=== PATIENT | male | born 1950 | race Caucasian/White ===

== ENCOUNTER 2017-05-23 14:27 | Inpatient (IN) | payer BC ==
[~2017-05-23] VITALS: Ht 177.8 cm; Wt 81.3 kg
[~2017-05-23 14:27] MED LIST: CLON0.5T PO; SERT100 PO
[2017-05-23 14:31] VITALS: BP 126/83; PULSE 107; RESP 16; TEMP 97.6; O2SAT 93
[2017-05-23] MEDS ORDERED: CLON0.5T PO (15:16)
[2017-05-23] MEDS ORDERED: ZOLO100T PO (15:16)
[2017-05-23 15:26] VITALS: O2SAT 94
[2017-05-23] MEDS ORDERED: FUROSEMIDE 40 MG/4 ML VIAL IVP ONE (15:30)
[2017-05-23] MEDS ORDERED: NITROGLYCERIN 2% OINT 1 GM PACKET TOPICAL ONE (15:30)
[2017-05-23] MEDS ORDERED: SODIUM CHLORIDE 0.9% FLUSH 10 ML FLUSH IVF PRN (15:30)
[2017-05-23] MEDS ORDERED: DILTIAZEM HCL 25 MG/5 ML VIAL IV PUSH ONE (16:00)
[2017-05-23] MEDS ORDERED: SODIUM CHLORIDE 0.9% FLUSH 10 ML FLUSH IV FLUSH PRN ×2 (16:00→18:00)
--- NOTE | 2017-05-23 16:22 | PD ---
HPI . Cough and shortness of breath Chief Complaint: Respiratory Symptoms Time Seen by Provider: 15:58 Travel History International Travel<30 days: No Contact w/Intl Traveler<30days: No Traveled to known affect area: No History of Present Illness HPI This patient presents with cough, shortness of breath and peripheral edema. Onset was maybe a week ago. It is getting progressively worse. He states that he was recently treated by an urgent care center for bronchitis with a Z-Leonel and steroids. The symptoms transiently improved but then "relapsed" about a week ago. He notes that his symptoms are exacerbated by lying down to go to sleep. Patient states that he has never had any cardiac issues. He states that his usual resting heart rate is in the 50s. The symptoms are mild. PFSH Past Medical History Depression: Yes Gastrointestinal Disorders: Yes (HIATAL HERNIA) Hiatal Hernia: Yes Past Surgical History AICD: No Joint Replacement: No Pacemaker: No Other Surgery: Yes (hernia repair) Social History Alcohol Use: Yes (socially ) Tobacco Use: No Substance Use: No Allergies-Medications (Allergen,Severity, Reaction): Coded Allergies: No Known Allergies (Unverified Allergy, Unknown, 05/23/17) Reported Meds & Prescriptions Reported Meds & Active Scripts Active Reported Zoloft (Sertraline HCl) 100 Mg Tab 150 Mg PO DAILY Clonazepam 0.5 Mg Tab 0.5 Mg PO HS Zoloft (Sertraline HCl) 100 Mg Tab 150 Mg PO HS Clonazepam 0.5 Mg Tab 0.5 Mg PO HS Review of Systems Except as stated in HPI: all other systems reviewed are Neg General / Constitutional: No: Fever, Chills Cardiovascular: No: Chest Pain or Discomfort Respiratory: Positive: Cough, Shortness of Breath Musculoskeletal: Positive: Edema Physical Exam Narrative GENERAL: Awake and alert and in no acute distress. SKIN: warm/dry. Normal color and turgor. HEAD: Normocephalic. Atraumatic. EYES: Pupils equal and round. No scleral icterus. No injection or drainage. ENT: No nasal bleeding or discharge. Mucous membranes pink and moist. NECK: Trachea midline. Full range of motion without pain.. CARDIOVASCULAR: Irregularly irregular rate and rhythm. RESPIRATORY: No accessory muscle use. Clear to auscultation. Breath sounds equal bilaterally. GASTROINTESTINAL: Abdomen soft. Nontender. Bowel sounds present. Nondistended. MUSCULOSKELETAL: No obvious deformities. 2+ pretibial pitting edema. NEUROLOGICAL: Awake and alert. No obvious cranial nerve deficits. Motor grossly within normal limits. Normal speech. PSYCHIATRIC: Appropriate mood and affect; insight and judgment normal. Data Data Last Documented VS Vital Signs Date Time Temp Pulse Resp B/P (MAP) Pulse Ox O2 Delivery O2 Flow Rate FiO2 05/23/17 15:26 94 Room Air 05/23/17 14:31 97.6 107 16 Orders Orders Electrocardiogram (05/23/17 ) Complete Blood Count With Diff (05/23/17 15:20) Comprehensive Metabolic Panel (05/23/17 15:20) B-Type Natriuretic Peptide (05/23/17 15:20) Troponin I (05/23/17 15:20) Iv Access Insert/Monitor (05/23/17 15:20) Ecg Monitoring (05/23/17 15:20) Oximetry (05/23/17 15:20) Oxygen Administration (05/23/17 15:20) Chest, Single Ap (05/23/17 15:20) Sodium Chloride 0.9% Flush (Ns Flush) (05/23/17 15:30) Furosemide Inj (Lasix Inj) (05/23/17 15:30) Nitroglycerin 2% Oint (Nitroglycerin 2% (05/23/17 15:30) Diltiazem Inj (Cardizem Inj) (05/23/17 16:00) Sodium Chloride 0.9% Flush (Ns Flush) (05/23/17 16:00) Aspirin Chew (Aspirin Chew) (05/23/17 17:15) Consult Cardiology (05/23/17 ) Admit Order (Ed Use Only) (05/23/17 ) Feathered[employer] Machine Operator / Telemetry PHYLLIS.Q8H (05/23/17 17:45) Vital Signs (Adult) Q4H (05/23/17 17:45) Diet Heart Healthy (05/23/17 Dinner) Activity Oob With Assistance (05/23/17 17:45) Notify Dr: Other (05/23/17 17:45) Labs Laboratory Tests Test 05/23/17 16:00 White Blood Count 11.0 TH/MM3 Red Blood Count 5.02 MIL/MM3 Hemoglobin 15.9 GM/DL Hematocrit 47.5 % Mean Corpuscular Volume 94.7 FL Mean Corpuscular Hemoglobin 31.6 PG Mean Corpuscular Hemoglobin Concent 33.4 % Red Cell Distribution Width 15.3 % Platelet Count 242 TH/MM3 Mean Platelet Volume 9.9 FL Neutrophils (%) (Auto) 67.2 % Lymphocytes (%) (Auto) 24.3 % Monocytes (%) (Auto) 7.5 % Eosinophils (%) (Auto) 0.3 % Basophils (%) (Auto) 0.7 % Neutrophils # (Auto) 7.4 TH/MM3 Lymphocytes # (Auto) 2.7 TH/MM3 Monocytes # (Auto) 0.8 TH/MM3 Eosinophils # (Auto) 0.0 TH/MM3 Basophils # (Auto) 0.1 TH/MM3 CBC Comment DIFF FINAL Differential Comment Blood Urea Nitrogen 23 MG/DL Creatinine 1.44 MG/DL Random Glucose 92 MG/DL Total Protein 6.1 GM/DL Albumin 3.1 GM/DL Calcium Level 8.6 MG/DL Alkaline Phosphatase 104 U/L Aspartate Amino Transf (AST/SGOT) 81 U/L Alanine Aminotransferase (ALT/SGPT) 114 U/L Total Bilirubin 0.7 MG/DL Sodium Level 148 MEQ/L Potassium Level 4.5 MEQ/L Chloride Level 114 MEQ/L Carbon Dioxide Level 25.4 MEQ/L Anion Gap 9 MEQ/L Estimat Glomerular Filtration Rate 49 ML/MIN Troponin I 1.44 NG/ML B-Type Natriuretic Peptide 965 PG/ML MDM Medical Decision Making Medical Screen Exam Complete: Yes Emergency Medical Condition: Yes Interpretation(s) EKG shows atrial fibrillation with a rate of about 125. No ST segment elevation or depression. Differential Diagnosis Differential diagnosis of dyspnea includes but is not limited to congestive heart failure, pneumonia, wheezing, pneumothorax, pulmonary embolism Narrative Course This patient presents with dyspnea especially orthopnea associated with peripheral edema. He is in atrial fibrillation with a rapid ventricular response. He has no previous similar history. I have ordered Lasix and nitroglycerin for the edema. I have ordered Cardizem for rate control. He will need to be admitted to the hospital once his workup is complete. CBC & BMP Diagram 05/23/17 16:00 Total Protein 6.1 L, Albumin 3.1 L, Calcium Level 8.6, Alkaline Phosphatase 104 , Aspartate Amino Transf (AST/SGOT) 81 H, Alanine Aminotransferase (ALT/SGPT) 114 H, Total Bilirubin 0.7 Trop 1.44 The patient has had Lasix, NTP, ASA and Cardizem bolus X 1. He has no previous cardiac history. He needs to be admitted for new-onset atrial fibrillation, congestive heart failure, rule out NSTEMI. Critical Care Narrative Aggregate critical care time was 30 minutes. Time to perform other separately billable procedures was not included in the critical care time. My time did not include minutes spent treating any other patients simultaneously or on activities that did not directly contribute to the patient's treatment. The services I provided to this patient were to treat and/or prevent clinically significant deterioration due to new onset AF with RVR, new onset CHF, elevated trop I provided critical care services requiring my management, as noted below: Chart data review, documentation time, medication orders and management, vital sign assessments/reviewing monitor data, ordering and reviewing lab tests, ordering and interpreting/reviewing x-rays and diagnostic studies, care of the patient and discussion of the patient with the admitting physicians Physician Communication Physician Communication Dr. Albright and Dr. Farias Diagnosis Primary Impression: New onset a-fib Additional Impression: Elevated troponin Admitting Information Admitting Physician Requests: Admit Condition: Stable Crystal Estrada MD May 23, 2017 16:22
--- NOTE | 2017-05-23 16:30 | RADRPT ---
EXAM DATE/TIME: 05/23/2017 15:40 [facility] COMPARISON: No previous studies available for comparison. INDICATIONS : Short of breath MEDICAL HISTORY : A-fib SURGICAL HISTORY : None. ENCOUNTER: Initial ACUITY: 4 - 6 days PAIN SCORE: 0/10 LOCATION: chest FINDINGS: Single AP view of the chest. The lungs are clear. Mild cardiac silhouette enlargement. No evidence of pleural effusion or pneumothorax. CONCLUSION: Mild cardiac silhouette enlargement. No other acute cardiopulmonary disease identi fied. Domingo Morris MD on May 23, 2017 at 16:27 Board Certified Radiologist. This report was verified electronically.
[2017-05-23 16:32] LABS: AUTOMATED NEUTROPHIL # 7.4 TH/MM3 (1.8-7.7); BASOPHIL # 0.1 TH/MM3 (0-0.2); BASOPHIL % 0.7 % (0.0-2.0); EOSINOPHIL % 0.3 % (0.0-4.0); HEMATOCRIT 47.5 % (39.0-51.0); HEMOGLOBIN 15.9 GM/DL (13.0-17.0); LYMPH % 24.3 % (9.0-44.0); LYMPHOCYTE # 2.7 TH/MM3 (1.0-4.8); MEAN CELL VOLUME 94.7 FL (80.0-100.0); MEAN CORPUSCULAR HEMOGLOBIN 31.6 PG (27.0-34.0); MEAN CORPUSCULAR HGB CONC 33.4 % (32.0-36.0); MEAN PLATELET VOLUME 9.9 FL (7.0-11.0); MONO % 7.5 % (0.0-8.0); MONOCYTE # 0.8 TH/MM3 (0-0.9); NEUT % 67.2 % (16.0-70.0); PLATELET COUNT 242 TH/MM3 (150-450); RED BLOOD COUNT 5.02 MIL/MM3 (4.50-5.90); RED CELL DISTRIBUTION WIDTH 15.3 % (11.6-17.2)
[2017-05-23 17:06] LABS: ALBUMIN 3.1 GM/DL (3.4-5.0); ALKALINE PHOSPHATASE 104 U/L (45-117); ALT (GPT) 114 U/L (12-78); AST (GOT) 81 U/L (15-37); BICARBONATE 25.4 MEQ/L (21.0-32.0); BLOOD UREA NITROGEN 23 MG/DL (7-18); CALCIUM 8.6 MG/DL (8.5-10.1); CHLORIDE 114 MEQ/L (98-107); CREATININE 1.44 MG/DL (0.60-1.30); GLOMERULAR FILTRATION RATE 49 ML/MIN (>89); GLUCOSE,RANDOM 92 MG/DL (74-106); SODIUM (NA) 148 MEQ/L (136-145); TOTAL BILIRUBIN ADULT 0.7 MG/DL (0.2-1.0); TOTAL PROTEIN 6.1 GM/DL (6.4-8.2)
[2017-05-23 17:08] LABS: TROPONIN I 1.44 NG/ML (0.02-0.05)
[2017-05-23] MEDS ORDERED: ASPIRIN 81 MG CHEW TAB CHEW ONE (17:15)
[2017-05-23] MEDS ORDERED: NALOXONE HCL 0.4 MG/ML AMP IV PUSH PRN (18:00)
[2017-05-23] MEDS ORDERED: ACETAMINOPHEN 325 MG TAB PO PRN (18:00)
[2017-05-23] MEDS ORDERED: ENOXAPARIN SODIUM 40 MG/0.4 ML SYRINGE SQ SCH (18:00)
[2017-05-23] MEDS ORDERED: SENNOSIDES 8.6 MG TAB PO PRN (18:00)
[2017-05-23] MEDS ORDERED: MAGNESIUM HYDROXIDE SUSP 30 ML CUP PO PRN (18:00)
[2017-05-23] MEDS ORDERED: ONDANSETRON HCL 4 MG/2 ML VIAL IVP PRN (18:00)
[2017-05-23] MEDS ORDERED: BISACODYL 10 MG SUPP RECTAL PRN (18:00)
[2017-05-23] MEDS ORDERED: LACTULOSE SYRUP 20 GM/30 ML CUP PO PRN (18:00)
[2017-05-23] MEDS: FUROSEMIDE 20 MG/2 ML VIAL IV PUSH SCH (19:11)
[2017-05-23] MEDS: DILTIAZEM HCL 30 MG TAB PO SCH ×2 (19:12→21:00)
[2017-05-23 19:45] VITALS: BP 122/89; PULSE 76; RESP 16; TEMP 97.7; O2SAT 98
[2017-05-23 19:46] LABS: TROPONIN I 1.11 NG/ML (0.02-0.05)
[2017-05-23] MEDS: DOCUSATE SODIUM 50 MG/SENNA 8.6 MG TAB PO SCH (21:00)
[2017-05-23] MEDS: clonazePAM 0.5 MG TAB PO SCH (21:52)
[2017-05-23] MEDS: SODIUM CHLORIDE 0.9% FLUSH 10 ML FLUSH IV FLUSH SCH (21:52)
[2017-05-23] MEDS: SERTRALINE HCL 50 MG TAB PO SCH (22:41)
[2017-05-23 23:47] VITALS: PULSE 79
[2017-05-24] VITALS (14 sets, daily range): BP systolic 93–136; BP diastolic 50–80; PULSE 61–125; RESP 16–20; TEMP 97.4–98.2; O2SAT 92–95
[2017-05-24] MEDS: NITROGLYCERIN 2% OINT 1 GM PACKET TOPICAL SCH ×4 (00:04→17:44)
[2017-05-24 02:37] LABS: BASOPHIL # 0.1 TH/MM3 (0-0.2); BASOPHIL % 0.9 % (0.0-2.0); EOSINOPHIL # 0.1 TH/MM3 (0-0.4); EOSINOPHIL % 0.6 % (0.0-4.0); HEMATOCRIT 40.5 % (39.0-51.0); HEMOGLOBIN 14.2 GM/DL (13.0-17.0); LYMPH % 29.4 % (9.0-44.0); LYMPHOCYTE # 2.9 TH/MM3 (1.0-4.8); MEAN CELL VOLUME 93.1 FL (80.0-100.0); MEAN CORPUSCULAR HEMOGLOBIN 32.7 PG (27.0-34.0); MEAN CORPUSCULAR HGB CONC 35.1 % (32.0-36.0); MONO % 8.2 % (0.0-8.0); MONOCYTE # 0.8 TH/MM3 (0-0.9); NEUT % 60.9 % (16.0-70.0); PLATELET COUNT 204 TH/MM3 (150-450); RED BLOOD COUNT 4.35 MIL/MM3 (4.50-5.90); RED CELL DISTRIBUTION WIDTH 14.9 % (11.6-17.2); WHITE BLOOD COUNT 9.9 TH/MM3 (4.0-11.0)
[2017-05-24 02:48] LABS: INTERNATIONAL NORMALIZED RATIO 1.2 RATIO; PROTHROMBIN TIME - PATIENT 11.8 SEC (9.8-11.6)
[2017-05-24 02:59] LABS: BICARBONATE 27.1 MEQ/L (21.0-32.0); CALCIUM 8.3 MG/DL (8.5-10.1); CREATININE 1.47 MG/DL (0.60-1.30)
[2017-05-24 03:11] LABS: TROPONIN I 1.05 NG/ML (0.02-0.05)
--- NOTE | 2017-05-24 08:05 | HHI.HP ---
[facility] Luke Meek MD Admission Diagnosis AF with RVR, CHF, elevated trop Diagnoses: Chief Complaint: Cough and Shortness of breath Travel History International Travel<30 Days: No Contact w/Intl Traveler <30 Da: No Traveled to Known Affected Are: No History of Present Illness This is a pleasant 66 y/o Male who came to ER with cough and shortness of breath also peripheral edema, that started one week ago, progressively worse He states that he was recently treated by an urgent care center for bronchitis with a Z-Leonel and steroids. The symptoms transiently improved but then "relapsed" about a week ago. He notes that his symptoms are exacerbated by lying down to go to sleep. Patient states that he has never had any cardiac issues. He states that his usual resting heart rate is in the 50s. The symptoms are mild. seen in his bedroom he states he has this symptoms since , was seen by urgent care and treated for Bronchitis with antibiotics, given Z Leonel, he got better but last week, started with lower leg edema after flying trip, not improving, but now worsened shortness of breath. came to ER and was admitted for probable Acute coronary syndrome. Review of Systems Constitutional: DENIES: Fever, Chills, Change in appetite Endocrine: DENIES: Heat/cold intolerance Eyes: DENIES: Blurred vision, Eye pain Except as stated in HPI: all other systems reviewed are Neg Past Family Social History Past Medical History Depression GERD/Hiatal Hernia Past Surgical History Hernia repair Reported Medications Reported Meds & Active Scripts Active Reported Zoloft (Sertraline HCl) 100 Mg Tab 150 Mg PO DAILY Clonazepam 0.5 Mg Tab 0.5 Mg PO HS Zoloft (Sertraline HCl) 100 Mg Tab 150 Mg PO HS Clonazepam 0.5 Mg Tab 0.5 Mg PO HS Allergies: Coded Allergies: No Known Allergies (Unverified Allergy, Unknown, 05/23/17) Active Ordered Medications Current Medications Medications (Trade) Dose Ordered Sig/Brandie Route Start Time Stop Time Status Last Admin (KlonoPIN) 0.5 mg HS PO 05/23/17 21:00 05/23/17 21:52 (NS Flush) 2 ml UNSCH PRN IV FLUSH 05/23/17 18:00 (NS Flush) 2 ml BID IV FLUSH 05/23/17 21:00 05/23/17 21:52 (Tylenol) 650 mg Q4H PRN PO 05/23/17 18:00 05/24/17 03:47 (Zofran Inj) 4 mg Q6H PRN IVP 05/23/17 18:00 (Lovenox Inj) 40 mg Q24H SQ 05/23/17 18:00 05/23/17 19:12 (Narcan Inj) 0.4 mg UNSCH PRN IV PUSH 05/23/17 18:00 (Sonja-Colace) 1 tab BID PO 05/23/17 21:00 (Milk Of Magnesia Liq) 30 ml Q12H PRN PO 05/23/17 18:00 (Senokot) 17.2 mg Q12H PRN PO 05/23/17 18:00 (Dulcolax Supp) 10 mg DAILY PRN RECTAL 05/23/17 18:00 (Lactulose Liq) 30 ml DAILY PRN PO 05/23/17 18:00 (Lasix Inj) 20 mg BID@09,18 IV PUSH 05/23/17 18:00 05/23/17 19:11 (Nitroglycerin 2% Oint) 1 inch Q6HR TOPICAL 05/24/17 00:00 05/24/17 06:24 (Cardizem) 30 mg QID PO 05/23/17 18:00 05/23/17 19:12 (Flu (Quadrivalent) Vaccine Inj) 0.5 ml ONCE ONCE IM 05/24/17 10:00 05/24/17 10:01 (Zoloft) 150 mg HS PO 05/23/17 22:16 05/23/17 22:41 Family History Brothers two with Atrial Fibrillation Brother with heart aneurysm Brother with Pacemaker placed. Social History Alcohol Occasional denies other toxic habits. 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 SKIN: warm/dry. Normal color and turgor. HEAD: Normocephalic. Atraumatic. EYES: Pupils equal and round. No scleral icterus. No injection or drainage. ENT: No nasal bleeding or discharge. Mucous membranes pink and moist. NECK: Trachea midline. Full range of motion without pain.. CARDIOVASCULAR: Irregularly irregular rate and rhythm. RESPIRATORY: No accessory muscle use. Clear to auscultation. Breath sounds equal bilaterally. GASTROINTESTINAL: Abdomen soft. Nontender. Bowel sounds present. Nondistended. MUSCULOSKELETAL: No obvious deformities. 2+ pretibial pitting edema. NEUROLOGICAL: Awake and alert. No obvious cranial nerve deficits. Motor grossly within normal limits. Normal speech. PSYCHIATRIC: Appropriate mood and affect; insight and judgment normal. Laboratory Laboratory Tests Test 05/23/17 16:00 05/23/17 19:00 05/24/17 02:18 White Blood Count 11.0 9.9 Red Blood Count 5.02 4.35 Hemoglobin 15.9 14.2 Hematocrit 47.5 40.5 Mean Corpuscular Volume 94.7 93.1 Mean Corpuscular Hemoglobin 31.6 32.7 Mean Corpuscular Hemoglobin Concent 33.4 35.1 Red Cell Distribution Width 15.3 14.9 Platelet Count 242 204 Mean Platelet Volume 9.9 9.0 Neutrophils (%) (Auto) 67.2 60.9 Lymphocytes (%) (Auto) 24.3 29.4 Monocytes (%) (Auto) 7.5 8.2 Eosinophils (%) (Auto) 0.3 0.6 Basophils (%) (Auto) 0.7 0.9 Neutrophils # (Auto) 7.4 6.0 Lymphocytes # (Auto) 2.7 2.9 Monocytes # (Auto) 0.8 0.8 Eosinophils # (Auto) 0.0 0.1 Basophils # (Auto) 0.1 0.1 CBC Comment DIFF FINAL DIFF FINAL Differential Comment Blood Urea Nitrogen 23 26 Creatinine 1.44 1.47 Random Glucose 92 93 Total Protein 6.1 Albumin 3.1 Calcium Level 8.6 8.3 Alkaline Phosphatase 104 Aspartate Amino Transf (AST/SGOT) 81 Alanine Aminotransferase (ALT/SGPT) 114 Total Bilirubin 0.7 Sodium Level 148 145 Potassium Level 4.5 3.7 Chloride Level 114 111 Carbon Dioxide Level 25.4 27.1 Anion Gap 9 7 Estimat Glomerular Filtration Rate 49 48 Troponin I 1.44 1.11 1.05 B-Type Natriuretic Peptide 965 683 Total Creatine Kinase 276 206 Prothrombin Time 11.8 Prothromb Time International Ratio 1.2 Activated Partial Thromboplast Time 25.4 Result Diagram: 05/24/1721705/24/17217 Imaging Last Impressions Chest X-Ray 05/23/17 1520 Signed Impressions: Service Date/Time: Tuesday, May 23, 2017 15:40 - CONCLUSION: Mild cardiac silhouette enlargement. No other acute cardiopulmonary disease identified. Domingo Morris MD Caprini VTE Risk Assessment Caprini VTE Risk Assessment: Mod/High Risk (score >= 2) Caprini Risk Assessment Model Point Value = 1 Point Value = 2 Point Value = 3 Point Value = 5 Age 41-60 Minor surgery BMI > 25 kg/m2 Swollen legs Varicose veins or History of unexplained or recurrent spontaneous Oral contraceptives or hormone replacement Sepsis (< 1 month) Serious lung disease, including pneumonia (< 1 month) Abnormal pulmonary function Acute myocardial infarction Congestive heart failure (< 1 month) History of inflammatory bowel disease Medical patient at bed rest Age 61-74 Arthroscopic surgery Major open surgery (> 45 min) Laparoscopic surgery (> 45 min) Malignancy Confined to bed (> 72 hours) Immobilizing plaster cast Central venous access Age >= 75 History of VTE Family history of VTE Factor V Leiden Prothrombin [id number] Lupus anticoagulant Anticardiolipin antibodies Elevated serum homocysteine Heparin-induced thrombocytopenia Other congenital or acquired thrombophilia Stroke (< 1 month) Elective arthroplasty Hip, pelvis, or leg fracture Acute spinal cord injury (< 1 month) Prophylaxis Regimen Total Risk Factor Score Risk Level Prophylaxis Regimen 0-1 Low Early ambulation 2 Moderate Order ONE of the following: *Sequential Compression Device (SCD) *Heparin 5000 units SQ BID 3-4 Higher Order ONE of the following medications: *Heparin 5000 units SQ TID *Enoxaparin/Lovenox 40 mg SQ daily (WT < 150 kg, CrCl > 30 mL/min) *Enoxaparin/Lovenox 30 mg SQ daily (WT < 150 kg, CrCl > 10-29 mL/min) *Enoxaparin/Lovenox 30 mg SQ BID (WT < 150 kg, CrCl > 30 mL/min) AND/OR *Sequential Compression Device (SCD) 5 or more Highest Order ONE of the following medications: *Heparin 5000 units SQ TID (Preferred with Epidurals) *Enoxaparin/Lovenox 40 mg SQ daily (WT < 150 kg, CrCl > 30 mL/min) *Enoxaparin/Lovenox 30 mg SQ daily (WT < 150 kg, CrCl > 10-29 mL/min) *Enoxaparin/Lovenox 30 mg SQ BID (WT < 150 kg, CrCl > 30 mL/min) AND *Sequential Compression Device (SCD) Assessment and Plan Assessment and Plan 1. New Onset of Atrial Fibrillation, EKG with no ST elevation or depression, Atrial Fibrillation with RVR, with symptoms of SOB, cough and peripheral edema Received Aspirin, Cardizem IV, Lasix, metallurgical specialist consulted. added Morphine IV as needed for chest pain, Beta Brisa metoprolol 12.5 mg every 12 hours, because has increased liver enzymes probable passive edema/ ischemia, [id number] is 1 CHF at this time. May need anticoagulation. 2. Elevated Troponin levels 3. Depression/Anxiety to continue Home medicines. 4. increased BNP probable CHF acute, asked for Echocardiogram, continue diuretics and follow 5. elevated LFTs probable passive edema/ischemia asked for hepatitis profile and HIV, also hepatic US, 6. Acute Kidney Injury worsening today. Kidney ultrasound DVT prophylaxis with Lovenox Code Status full code Discussed Condition With patient and nurse. Rayray Fraser MD May 24, 2017 08:05
[2017-05-24] MEDS: FUROSEMIDE 20 MG/2 ML VIAL IV PUSH SCH ×2 (08:42→17:43)
[2017-05-24] MEDS: DOCUSATE SODIUM 50 MG/SENNA 8.6 MG TAB PO SCH ×2 (08:43→21:00)
[2017-05-24] MEDS ORDERED: MORPHINE SULFATE 2 MG/ML INJ IV PUSH PRN (08:45)
[2017-05-24] MEDS: SODIUM CHLORIDE 0.9% FLUSH 10 ML FLUSH IV FLUSH SCH ×2 (08:46→22:06)
[2017-05-24] MEDS: DILTIAZEM HCL 30 MG TAB PO SCH ×4 (09:00→22:06)
[2017-05-24] MEDS ORDERED: SERTRALINE HCL 50 MG TAB PO SCH (09:00)
[2017-05-24] MEDS ORDERED: METOPROLOL TARTRATE 25 MG TAB PO SCH (09:00)
[2017-05-24] MEDS ORDERED: INFLUENZA VIRUS VACCINE (QUADRIVALENT) 0.5 ML SYR IM ONE (10:00)
[2017-05-24 10:35] LABS: CHOLESTEROL/ HDL RATIO 2.19 RATIO; HDL CHOLESTEROL 47.8 MG/DL (40.0-60.0)
[2017-05-24 10:47] LABS: FREE T4 1.06 NG/DL (0.76-1.46)
[2017-05-24] MEDS: METOPROLOL TARTRATE 25 MG TAB PO SCH ×2 (12:00→17:44)
[2017-05-24] MEDS: POTASSIUM CHLORIDE 20 MEQ CONTROLLED RELEASE TAB PO SCH ×3 (13:00→22:05)
[2017-05-24 14:00] LABS: HEPATITIS A AB IGM NEGATIVE (NEGATIVE); HEPATITIS B CORE AB IGM NEGATIVE (NEGATIVE); HEPATITIS B SURFACE ANTIGEN NEGATIVE (NEGATIVE); HEPATITIS C AB IgG NEGATIVE (NEGATIVE)
--- NOTE | 2017-05-24 15:14 | MB ---
cc: ALIA ABREU M.D. DATE OF CONSULTATION 05/24/2017 HISTORY OF PRESENT ILLNESS Evaluation of atrial fibrillation, CHF and elevated troponin. HISTORY OF PRESENT ILLNESS Vincent Lr is a 66-year-old man with no previous history of heart disease. He was in his usual state of health until sometime between and when he developed bronchitis, ended up getting a Z-Leonel and steroids. He felt a little bit better but the last couple of weeks has been feeling more short of breath at night with orthopnea, PND and lower extremity edema. He finally decided to come into the hospital where he was diagnosed with CHF and rapid atrial fibrillation. The patient has been noticing swelling in his legs. He was trying to use compression stockings but even that would not control it. He has not had any typical angina. His troponin is elevated but I cannot elicit any chest pain or heaviness that sounds like ischemia. He has a watch that he uses to monitor his heart rate. Of note, his heart rate was reading the 50s and while here on telemetry is close to 100, so the watch is not picking up the atrial fibrillation rate very well. He has a family history of atrial fibrillation. He has two brothers with atrial fibrillation and one brother who has a pacemaker. His father had heart disease and at age 82. We do not know the extent of the paternal heart disease. He has not been diagnosed with hypertension or diabetes. He does not smoke. His lipid status is unknown. PAST MEDICAL HISTORY 1. Two hernia repairs. 2. Rotator cuff problems. 3. Right knee is [id number]. 4. Previous left leg fracture. 5. Depression for which he is on Zoloft and clonazepam from ____. SOCIAL HISTORY He is with two children. 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 He has a couple of drinks on weekends but not much during the week. REVIEW OF SYSTEMS Notable for occasional headaches and occasional urinary urgency. The remaining review of systems negative. PHYSICAL EXAMINATION GENERAL: A well-developed, well-nourished man in no acute distress. VITAL SIGNS: Charted. HEENT: Unremarkable. NECK: No JVD. No bruits. CHEST: Slightly decreased breath sounds right base, otherwise clear. CARDIAC: PMI displaced slightly laterally. S1, S2, tachycardic. No significant murmur. ABDOMEN: Soft, nontender. No masses or organomegaly. EXTREMITIES: 1-2+ lower extremity edema with intact pulses. EKG EKGs here showed atrial fibrillation with RVR, left axis deviation and some minor nonspecific T-wave changes. LABORATORY Troponin has been coming down, was elevated at 1.44 and is currently down to 1.05. HDL and LDL were normal. Total cholesterol 105. Creatinine is 1.47. Potassium is 3.7. IMPRESSION New onset CHF and rapid atrial fibrillation. It is not clear how long he has been in atrial fibrillation. I thought from his watch we could tell more easily but I do not think the watch he wears has picked up the atrial fibrillation adequately. Suspect he may have been in atrial fibrillation now for about a month and now has impaired LV function secondary to it. The troponin is elevated but I cannot elicit a clear history of angina. He is not out of CHF. He still has lower extremity edema. PLAN I have increased his Lasix to 40 mg IV b.i.d., increased his metoprolol to 25 mg q.6h. for rate control. Await his echo to check his LV function. I have added a potassium supplement. Will check electrolytes and magnesium level in the morning. Further therapy to be determined. MD BETTY Spears/NIXON /11:31 AM /2:49 PM
[2017-05-24 15:55] LABS: HEMOGLOBIN A1C 5.7 % (4.3-6.0)
--- NOTE | 2017-05-24 16:26 | RADRPT ---
EXAM DATE/TIME: 05/24/2017 13:22 [facility] COMPARISON: CT ABDOMEN & PELVIS W CONTRAST, November 28, 2015, 7:21. INDICATIONS : Increased lab values. MEDICAL HISTORY : Atrial fibrillation. Dyspnea. Hiatal hernia. SURGICAL HISTORY : Hernia repair. ENCOUNTER: Initial ACUITY: 1 day PAIN SCORE: 0/10 LOCATION: Bilateral Abdomen. MEASUREMENTS: LIVER: 16.4 cm length COMMON DUCT: 5 mm RIGHT KIDNEY: 12.0 x 5.2 x 6.6 cm LEFT KIDNEY: 12.2 x 4.7 x 6.1 cm SPLEEN: 11.3 cm length AORTA: 2.0cm maximal FINDINGS: LIVER: Normal echotexture without focal lesion or ductal dilatation. A right pleural effusion is noted. Hep atic veins appear mildly dilated. COMMON DUCT: No intraluminal mass or stone visualized. GALLBLADDER: Contains no stones, demonstrates no wall thickening or pericholecystic fluid. PANCREAS: The visualized portions are within normal limits. RIGHT KIDNEY: No hydronephrosis, stone or mass. LEFT KIDNEY: No hydronephrosis, stone or mass. SPLEEN: No focal lesion. AORTA: Non aneurysmal. IVC: Within normal limits. CONCLUSION: 1. Right pleural effusion noted. 2. Unremarkable gallbladder. 3. The hepatic veins appear mildly dilated. There is no focal lesion. Hai Cesar MD on May 24, 2017 at 16:22 Board Certified Radiologist. This report was verified electronically.
--- NOTE | 2017-05-24 19:04 | EKG ---
Date Performed: 05/23/2017 Time Performed: 21:59:23 PTAGE: 66 years EKG: ATRIAL FIBRILLATION INCOMPLETE RIGHT BUNDLE BRANCH BLOCK NONSPECIFIC T-WAVE ABNORMALITY Sin ce previous tracing, no significant change noted ABNORMAL RHYTHM ECG PREVIOUS TRACING : 05/23/2017 19.04 DOCTOR: Vince Mckenna Interpretating Date/Time 05/24/2017 19:04:13
--- NOTE | 2017-05-24 19:04 | EKG ---
Date Performed: 05/23/2017 Time Performed: 15:24:07 PTAGE: 66 years EKG: ATRIAL FIBRILLATION WITH RAPID VENTRICULAR RESPONSE BORDERLINE LEFT AXIS DEVIATION Since pr evious tracing, no significant change noted ABNORMAL RHYTHM ECG PREVIOUS TRACING : 08/20/2014 10.39.31 DOCTOR: Vince Mckenna Interpretating Date/Time 05/24/2017 19:03:25
--- NOTE | 2017-05-24 19:04 | EKG ---
Date Performed: 05/23/2017 Time Performed: 19:04:22 PTAGE: 66 years EKG: ATRIAL FIBRILLATION BORDERLINE LEFT AXIS DEVIATION POSSIBLE RIGHT VENTRICULAR CONDUCTION DE LAY NONSPECIFIC T-WAVE ABNORMALITY Since previous tracing, no significant change noted ABNORMAL RHYTH M ECG PREVIOUS TRACING : 05/23/2017 15.24.07 DOCTOR: Vince Mckenna Interpretating Date/Time 05/24/2017 19:03:59
[2017-05-24] MEDS ORDERED: ENOXAPARIN SODIUM 80 MG/0.8 ML SYRINGE SQ SCH (21:00)
[2017-05-24] MEDS: SERTRALINE HCL 50 MG TAB PO SCH (22:04)
[2017-05-24] MEDS: clonazePAM 0.5 MG TAB PO SCH (22:04)
[2017-05-25] VITALS (12 sets, daily range): BP systolic 90–117; BP diastolic 57–76; PULSE 69–105; RESP 16–20; TEMP 97.3–98.3; O2SAT 93–98
[2017-05-25] MEDS: NITROGLYCERIN 2% OINT 1 GM PACKET TOPICAL SCH ×2 (00:51→05:17)
[2017-05-25] MEDS: METOPROLOL TARTRATE 25 MG TAB PO SCH ×4 (00:51→17:33)
[2017-05-25] MEDS: SODIUM CHLORIDE 0.9% FLUSH 10 ML FLUSH IV FLUSH SCH ×2 (09:00→21:37)
--- NOTE | 2017-05-25 09:08 | HHI.PR ---
Subjective Remarks This is a pleasant 66 y/o Male who came to ER with cough and shortness of breath also peripheral edema, that started one week ago, progressively worse He states that he was recently treated by an urgent care center for bronchitis with a Z-Leonel and steroids. The symptoms transiently improved but then "relapsed" about a week ago. He notes that his symptoms are exacerbated by lying down to go to sleep. Patient states that he has never had any cardiac issues. He states that his usual resting heart rate is in the 50s. The symptoms are mild. seen in his bedroom he states he has this symptoms since [place], was seen by urgent care and treated for Bronchitis with antibiotics, given Z Leonel, he got better but last week, started with lower leg edema after flying trip, not improving, but now worsened shortness of breath. came to ER and was admitted for probable Acute coronary syndrome. 05/25: Seen in his bedroom, stable improving condition, Continue diuresis, has Dilated Cardiomyopathy, added ARLET inhibitors, [place] Fibrillation with RVR added Digoxin and continued Metoprolol, Equivocal Troponin elevation, no nausea , vomit or diarrhea. Objective Vital Signs Date Time Temp Pulse Resp B/P (MAP) Pulse Ox O2 Delivery O2 Flow Rate FiO2 05/25/17 05:15 105/60 (75) 05/25/17 04:00 97.6 83 16 90/66 (74) 93 05/25/17 03:58 87 05/25/17 00:06 99 05/25/17 00:00 97.8 84 18 101/76 (84) 94 05/24/17 22:00 120/60 (80) 05/24/17 20:00 Room Air 05/24/17 20:00 97.5 94 18 99/66 (77) 94 05/24/17 20:00 118 05/24/17 16:23 97.4 80 18 126/65 (85) 95 05/24/17 16:00 92 05/24/17 12:27 97.4 82 18 107/70 (82) 94 05/24/17 12:00 111 05/24/17 09:53 94 21 I/O 05/24/17 05/24/17 05/24/17 05/25/17 05/25/17 05/25/17 07:00 15:00 23:00 07:00 15:00 23:00 Intake Total 360 ml Output Total 1800 ml 2000 ml Balance -1440 ml -2000 ml Intake Oral 360 ml Output Urine Total 1800 ml 2000 ml # Voids 3 # Bowel Movements 1 Result Diagram: 05/24/17 0218 05/24/17 0218 Imaging Last Impressions Abdomen Ultrasound 05/24/17 0000 Signed Impressions: Service Date/Time: Wednesday, May 24, 2017 13:22 - CONCLUSION: 1. Right pleural effusion noted. 2. Unremarkable gallbladder. 3. The hepatic veins appear mildly dilated. There is no focal lesion. Hai Cesar MD Chest X-Ray 05/23/17 1520 Signed Impressions: Service Date/Time: Tuesday, May 23, 2017 15:40 - CONCLUSION: Mild cardiac silhouette enlargement. No other acute cardiopulmonary disease identified. Domingo Morris MD Procedures None Other Results Laboratory Tests Test 05/23/17 16:00 05/24/17 02:18 05/24/17 09:15 05/24/17 09:17 Blood Urea Nitrogen 23 MG/DL 26 MG/DL Creatinine 1.44 MG/DL 1.47 MG/DL Random Glucose 92 MG/DL 93 MG/DL Total Protein 6.1 GM/DL Albumin 3.1 GM/DL Calcium Level 8.6 MG/DL 8.3 MG/DL Alkaline Phosphatase 104 U/L Aspartate Amino Transf (AST/SGOT) 81 U/L Alanine Aminotransferase (ALT/SGPT) 114 U/L Total Bilirubin 0.7 MG/DL Sodium Level 148 MEQ/L 145 MEQ/L Potassium Level 4.5 MEQ/L 3.7 MEQ/L Chloride Level 114 MEQ/L 111 MEQ/L Carbon Dioxide Level 25.4 MEQ/L 27.1 MEQ/L White Blood Count 9.9 TH/MM3 Red Blood Count 4.35 MIL/MM3 Hemoglobin 14.2 GM/DL Hematocrit 40.5 % Mean Corpuscular Volume 93.1 FL Mean Corpuscular Hemoglobin 32.7 PG Mean Corpuscular Hemoglobin Concent 35.1 % Red Cell Distribution Width 14.9 % Platelet Count 204 TH/MM3 Mean Platelet Volume 9.0 FL Neutrophils (%) (Auto) 60.9 % Lymphocytes (%) (Auto) 29.4 % Monocytes (%) (Auto) 8.2 % Eosinophils (%) (Auto) 0.6 % Basophils (%) (Auto) 0.9 % Neutrophils # (Auto) 6.0 TH/MM3 Lymphocytes # (Auto) 2.9 TH/MM3 Monocytes # (Auto) 0.8 TH/MM3 Eosinophils # (Auto) 0.1 TH/MM3 Basophils # (Auto) 0.1 TH/MM3 CBC Comment DIFF FINAL Differential Comment Prothrombin Time 11.8 SEC Prothromb Time International Ratio 1.2 RATIO Activated Partial Thromboplast Time 25.4 SEC Anion Gap 7 MEQ/L Estimat Glomerular Filtration Rate 48 ML/MIN Total Creatine Kinase 206 U/L Troponin I 1.05 NG/ML B-Type Natriuretic Peptide 683 PG/ML Urine Opiates Screen NEG Urine Barbiturates Screen NEG Urine Amphetamines Screen NEG Urine Benzodiazepines Screen NEG Urine Cocaine Screen NEG Urine Cannabinoids Screen NEG Hemoglobin A1c 5.7 % Triglycerides Level 57 MG/DL Cholesterol Level 105 MG/DL LDL Cholesterol 46 MG/DL HDL Cholesterol 47.8 MG/DL Cholesterol/HDL Ratio 2.19 RATIO Vitamin B12 Level 943 PG/ML Free Thyroxine 1.06 NG/DL Thyroid Stimulating Hormone 3rd Gen 1.810 uIU/ML Test 05/24/17 10:23 Hepatitis A IgM Antibody NEGATIVE Hepatitis B Surface Antigen NEGATIVE Hepatitis B Core IgM Antibody NEGATIVE Hepatitis C Antibody NEGATIVE HIV (1&2) Antibody NEGATIVE Objective Remarks GENERAL: Awake and alert and in no acute distress. SKIN: warm/dry. Normal color and turgor. HEAD: Normocephalic. Atraumatic. EYES: Pupils equal and round. No scleral icterus. No injection or drainage. ENT: No nasal bleeding or discharge. Mucous membranes pink and moist. NECK: Trachea midline. Full range of motion without pain.. CARDIOVASCULAR: Irregularly irregular rate and rhythm. RESPIRATORY: No accessory muscle use. Clear to auscultation. Breath sounds equal bilaterally. GASTROINTESTINAL: Abdomen soft. Nontender. Bowel sounds present. Nondistended. MUSCULOSKELETAL: No obvious deformities. 2+ pretibial pitting edema. NEUROLOGICAL: Awake and alert. No obvious cranial nerve deficits. Motor grossly within normal limits. Normal speech. PSYCHIATRIC: Appropriate mood and affect; insight and judgment normal. Medications and IVs Current Medications Medications (Trade) Dose Ordered Sig/Brandie Route Start Time Stop Time Status Last Admin (KlonoPIN) 0.5 mg HS PO 05/23/17 21:00 05/24/17 22:04 (NS Flush) 2 ml UNSCH PRN IV FLUSH 05/23/17 18:00 (NS Flush) 2 ml BID IV FLUSH 05/23/17 21:00 05/24/17 22:06 (Tylenol) 650 mg Q4H PRN PO 05/23/17 18:00 05/24/17 03:47 (Zofran Inj) 4 mg Q6H PRN IVP 05/23/17 18:00 (Narcan Inj) 0.4 mg UNSCH PRN IV PUSH 05/23/17 18:00 (Sonja-Colace) 1 tab BID PO 05/23/17 21:00 (Milk Of Magnesia Liq) 30 ml Q12H PRN PO 05/23/17 18:00 (Senokot) 17.2 mg Q12H PRN PO 05/23/17 18:00 (Dulcolax Supp) 10 mg DAILY PRN RECTAL 05/23/17 18:00 (Lactulose Liq) 30 ml DAILY PRN PO 05/23/17 18:00 (Nitroglycerin 2% Oint) 1 inch Q6HR TOPICAL 05/24/17 00:00 05/25/17 05:17 (Cardizem) 30 mg QID PO 05/23/17 18:00 05/24/17 22:06 (Zoloft) 150 mg HS PO 05/23/17 22:16 05/24/17 22:04 (Morphine Inj) 1 mg Q4H PRN IV PUSH 05/24/17 08:45 (Lasix Inj) 40 mg BID@09,18 IV PUSH 05/24/17 18:00 05/24/17 17:43 (KCl) 20 meq QID PO 05/24/17 13:00 05/24/17 22:05 (Lopressor) 25 mg Q6HR PO 05/24/17 12:00 05/25/17 05:17 A/P Assessment and Plan 1. New Onset of Atrial Fibrillation, EKG with no ST elevation or depression, Atrial Fibrillation with RVR, with symptoms of SOB, cough and peripheral edema Received Aspirin, Cardizem IV, Lasix in Emergency Room, was continued on Morphine, [id number] is 1 CHF, pharmacy specialist following, Echocardiogram EF 25-30%, severely reduced with an estimated ejection fraction, Mild to Moderate dilated left ventricle, Left atrial size moderate dilation Mild to moderate mitral valve regurgitation, Small Pericardial effusion, recommended for ARLET inhibitors, Digoxin. Cardiology removed anticoagulation. call placed to Doctor Isaac for anticoagulation needed at this time. 2. Equivocal Troponin elevation and 3. Depression/Anxiety to continue Home medicines. 4. increased BNP probable CHF acute, asked for Echocardiogram, continue diuretics and follow 5. elevated LFTs probable passive edema/ischemia hepatitis profile negative and HIV negative, also hepatic US negative for pathology 6. Acute Kidney Injury worsening today. Kidney ultrasound negative for pathology , secondary to IV Diuretics. DVT prophylaxis: Eliquis started at a Dose of 2.5 mg due to Creatinine over 1.5 mg/ml as per protocol. Code Status full code Discussed Condition With patient and nurse Miss Bailey Discharge Planning Once cleared by pharmacy specialist. Rayray Fraser MD May 25, 2017 09:08
[2017-05-25] MEDS: DILTIAZEM HCL 30 MG TAB PO SCH (09:54)
[2017-05-25] MEDS: DOCUSATE SODIUM 50 MG/SENNA 8.6 MG TAB PO SCH ×2 (09:55→21:00)
[2017-05-25] MEDS: POTASSIUM CHLORIDE 20 MEQ CONTROLLED RELEASE TAB PO SCH ×4 (09:55→21:36)
[2017-05-25] MEDS: FUROSEMIDE 20 MG/2 ML VIAL IV PUSH SCH ×2 (09:55→17:33)
--- NOTE | 2017-05-25 10:08 | PD.CARD.PN ---
Subjective Subjective Remarks Abdominal and leg swelling improved. No angina Objective Medications Current Medications Medications (Trade) Dose Ordered Sig/Brandie Route Start Time Stop Time Status Last Admin (KlonoPIN) 0.5 mg HS PO 05/23/17 21:00 05/24/17 22:04 (NS Flush) 2 ml UNSCH PRN IV FLUSH 05/23/17 18:00 (NS Flush) 2 ml BID IV FLUSH 05/23/17 21:00 05/24/17 22:06 (Tylenol) 650 mg Q4H PRN PO 05/23/17 18:00 05/24/17 03:47 (Zofran Inj) 4 mg Q6H PRN IVP 05/23/17 18:00 (Narcan Inj) 0.4 mg UNSCH PRN IV PUSH 05/23/17 18:00 (Sonja-Colace) 1 tab BID PO 05/23/17 21:00 05/25/17 09:55 (Milk Of Magnesia Liq) 30 ml Q12H PRN PO 05/23/17 18:00 (Senokot) 17.2 mg Q12H PRN PO 05/23/17 18:00 (Dulcolax Supp) 10 mg DAILY PRN RECTAL 05/23/17 18:00 (Lactulose Liq) 30 ml DAILY PRN PO 05/23/17 18:00 (Nitroglycerin 2% Oint) 1 inch Q6HR TOPICAL 05/24/17 00:00 05/25/17 05:17 (Cardizem) 30 mg QID PO 05/23/17 18:00 05/25/17 09:54 (Zoloft) 150 mg HS PO 05/23/17 22:16 05/24/17 22:04 (Morphine Inj) 1 mg Q4H PRN IV PUSH 05/24/17 08:45 (Lasix Inj) 40 mg BID@,18 IV PUSH 05/24/17 18:00 05/25/17 09:55 (KCl) 20 meq QID PO 05/24/17 13:00 05/25/17 09:55 (Lopressor) 25 mg Q6HR PO 05/24/17 12:00 05/25/17 05:17 (Lanoxin Inj) 0.25 mg Q6HR IV PUSH 05/25/17 10:30 05/25/17 23:30 UNV (Lanoxin) 0.25 mg DAILY PO 05/26/17 09:00 UNV Vital Signs / I&O Vital Signs Date Time Temp Pulse Resp B/P (MAP) Pulse Ox O2 Delivery O2 Flow Rate FiO2 05/25/17 05:15 105/60 (75) 05/25/17 04:00 97.6 83 16 90/66 (74) 93 05/25/17 03:58 87 05/25/17 00:06 99 05/25/17 00:00 97.8 84 18 101/76 (84) 94 05/24/17 22:00 120/60 (80) 05/24/17 20:00 Room Air 05/24/17 20:00 97.5 94 18 99/66 (77) 94 05/24/17 20:00 118 05/24/17 16:23 97.4 80 18 126/65 (85) 95 05/24/17 16:00 92 05/24/17 12:27 97.4 82 18 107/70 (82) 94 05/24/17 12:00 111 I/O 05/24/17 05/24/17 05/24/17 05/25/17 05/25/17 05/25/17 07:00 15:00 23:00 07:00 15:00 23:00 Intake Total 360 ml Output Total 1800 ml 2000 ml Balance -1440 ml -2000 ml Intake Oral 360 ml Output Urine Total 1800 ml 2000 ml # Voids 3 # Bowel Movements 1 Physical Exam Alert, NAD Neck + JVD Chest Clear CV S1S2 irr irr. Tele -AF 90's Abd: liver 1-2 FB below right costal margin Ext: 2+ edema Echo: EF about 25%, RV function dcreased. 4chamber enlargement. Mod MR, Mild TR Laboratory Laboratory Tests Test 05/24/17 10:23 05/25/17 08:35 Hepatitis A IgM Antibody NEGATIVE Hepatitis B Surface Antigen NEGATIVE Hepatitis B Core IgM Antibody NEGATIVE Hepatitis C Antibody NEGATIVE HIV (1&2) Antibody NEGATIVE Assessment and Plan Problem List: (1) Acute systolic CHF (congestive heart failure) ICD Codes: I50.21 - Acute systolic (congestive) heart failure Plan: Needs continued diuresis, he is still very congested although lungs are clear (2) Dilated cardiomyopathy ICD Codes: I42.0 - Dilated cardiomyopathy Plan: add ACEI. BP running low so will need to be careful. Suspect etiology is prolonged uncontrolled AF prior to admit. (3) Atrial fibrillation with rapid ventricular response ICD Codes: I48.91 - Unspecified atrial fibrillation Plan: Add digoxin. Continue metoprolol (4) Elevated troponin ICD Codes: R74.8 - Abnormal levels of other serum enzymes Status: Acute Plan: probably secondary to CHF. May consider future SPECT. There is no angina. LV is full thickness with global hypokinesis does not suggest CAD as the cause. Miguel Angel Isaac MD May 25, 2017 10:08
[2017-05-25 10:28] LABS: AST (GOT) 52 U/L (15-37); BICARBONATE 30.1 MEQ/L (21.0-32.0); BLOOD UREA NITROGEN 22 MG/DL (7-18); CALCIUM 8.8 MG/DL (8.5-10.1); CHLORIDE 104 MEQ/L (98-107); CREATININE 1.54 MG/DL (0.60-1.30); GLOMERULAR FILTRATION RATE 46 ML/MIN (>89); GLUCOSE,RANDOM 114 MG/DL (74-106); SODIUM (NA) 140 MEQ/L (136-145)
[2017-05-25 10:30] LABS: ALT (GPT) 89 U/L (12-78)
[2017-05-25] MEDS: DIGOXIN 0.5 MG/2 ML VIAL IV PUSH SCH ×3 (10:30→21:37)
[2017-05-25 10:31] LABS: ALKALINE PHOSPHATASE 80 U/L (45-117); TOTAL PROTEIN 5.6 GM/DL (6.4-8.2)
--- NOTE | 2017-05-25 11:41 | ECHRPT ---
Indication: CONCLUSIONS Mildly to moderately dilated left ventricle. The left ventricular systolic function is severely reduced with an estimated ejection fraction in th e range of 25-30%. The left atrial size is moderately to severely dilated. Mild to moderate mitral valve regurgitation. There is mild tricuspid valve regurgitation. The estimated pulmonary arterial pressure is 35 mmHg. There is a small pericardial effusion present. BP: / HR: Rhythm: MEASUREMENTS (Male / Female) Normal Values Technical Quality:Excellent 2D ECHO LV Diastolic Diameter PLAX 6.2 cm 4.2 - 5.9 / 3.9 - 5.3 cm LV Systolic Diameter PLAX 5.6 cm IVS Diastolic Thickness 1.2 cm 0.6 - 1.0 / 0.6 - 0.9 cm LVPW Diastolic Thickness 1.0 cm 0.6 - 1.0 / 0.6 - 0.9 cm LV Relative Wall Thickness 0.4 RV Internal Dim ED PLAX 3.4 cm M-MODE Aortic Root Diameter MM 3.7 cm LA Systolic Diameter MM 6.0 cm LA Ao Ratio MM 1.6 AV Cusp Separation MM 2.2 cm DOPPLER LV E' Lateral Velocity 3.2 cm/s LV E' Septal Velocity 9.6 cm/s TR Peak Velocity 248.0 cm/s TR Peak Gradient 24.6 mmHg Right Atrial Pressure 10.0 mmHg Pulmonary Artery Systolic Pressu 34.6 mmHg Right Ventricular Systolic Press 34.6 mmHg FINDINGS LEFT VENTRICLE Mildly to moderately dilated left ventricle. The left ventricular systolic function is severely reduced with an estimated ejection fraction in th e range of 25-30%. RIGHT VENTRICLE Normal right ventricular size and systolic function. LEFT ATRIUM The left atrial size is naiv-ss-bjhwzcchuf dilated. 6.0 cm RIGHT ATRIUM The right atrial size is normal. ATRIAL SEPTUM Normal atrial septal thickness without atrial level shunting by limited color doppler interrogation. AORTA The aortic root and proximal ascending aorta are normal in size on limited imaging. MITRAL VALVE Structurally normal mitral valve. Mild to moderate mitral valve regurgitation. AORTIC VALVE Trileaflet aortic valve. No aortic valve stenosis. No aortic valve regurgitation. TRICUSPID VALVE Structurally normal tricuspid valve. There is mild tricuspid valve regurgitation. The estimated pulmonary arterial pressure is 34.6 mmHg. PULMONARY VALVE No pulmonary valve regurgitation or stenosis. VESSELS The inferior vena cava is normal in size. PERICARDIUM There is a small pericardial effusion present. .9cm Junior Alvarez MD, FACC Edited by: [email or web address] CV Bean Weigher (Electronically Signed) Final Date:24 May 2017 13:36 Amended: 25 May 2017 11:39
[2017-05-25] MEDS ORDERED: APIXABAN 2.5 MG TABLET PO SCH (18:00)
[2017-05-25] MEDS: APIXABAN 2.5 MG TABLET PO SCH (21:34)
[2017-05-25] MEDS: SERTRALINE HCL 50 MG TAB PO SCH (21:34)
[2017-05-25] MEDS: clonazePAM 0.5 MG TAB PO SCH (21:34)
[2017-05-26] VITALS (9 sets, daily range): BP systolic 92–99; BP diastolic 53–73; PULSE 76–96; RESP 16–20; TEMP 97.1–97.5; O2SAT 94–98
[2017-05-26] MEDS: METOPROLOL TARTRATE 25 MG TAB PO SCH ×4 (01:10→18:34)
[2017-05-26 08:25] LABS: HEMATOCRIT 41.9 % (39.0-51.0); HEMOGLOBIN 14.4 GM/DL (13.0-17.0); MEAN CELL VOLUME 93.5 FL (80.0-100.0); MEAN CORPUSCULAR HGB CONC 34.3 % (32.0-36.0); MEAN PLATELET VOLUME 9.1 FL (7.0-11.0); PLATELET COUNT 186 TH/MM3 (150-450); RED BLOOD COUNT 4.49 MIL/MM3 (4.50-5.90); RED CELL DISTRIBUTION WIDTH 14.8 % (11.6-17.2); WHITE BLOOD COUNT 10.3 TH/MM3 (4.0-11.0)
[2017-05-26 08:39] LABS: BICARBONATE 31.9 MEQ/L (21.0-32.0); CALCIUM 8.6 MG/DL (8.5-10.1); CREATININE 1.38 MG/DL (0.60-1.30)
[2017-05-26] MEDS: SODIUM CHLORIDE 0.9% FLUSH 10 ML FLUSH IV FLUSH SCH ×2 (09:00→20:45)
[2017-05-26] MEDS: DOCUSATE SODIUM 50 MG/SENNA 8.6 MG TAB PO SCH ×2 (09:00→20:44)
[2017-05-26] MEDS: DIGOXIN 0.25 MG TAB PO SCH (10:24)
[2017-05-26] MEDS: LISINOPRIL 5 MG TAB PO SCH (10:24)
[2017-05-26] MEDS: POTASSIUM CHLORIDE 20 MEQ CONTROLLED RELEASE TAB PO SCH ×4 (10:25→20:44)
[2017-05-26] MEDS: APIXABAN 2.5 MG TABLET PO SCH (10:25)
[2017-05-26] MEDS: FUROSEMIDE 20 MG/2 ML VIAL IV PUSH SCH ×2 (10:25→18:21)
--- NOTE | 2017-05-26 15:23 | HHI.PR ---
Subjective Remarks The pt was resting comfortably. He had to use the bathroom. No acute complaints. Awaiting cath in AM. Discussed with nursing. Has been ambulatory. Objective Vitals Vital Signs Date Time Temp Pulse Resp B/P (MAP) Pulse Ox O2 Delivery O2 Flow Rate FiO2 05/26/17 12:00 82 05/26/17 08:00 87 05/26/17 08:00 96 05/26/17 08:00 96 Room Air 21 05/26/17 08:00 97.5 85 20 97/66 (76) 97 05/26/17 04:00 97.2 83 18 95/53 (67) 96 05/26/17 03:57 79 05/26/17 00:00 97.4 82 16 99/73 (82) 96 05/25/17 23:58 87 05/25/17 21:09 98 05/25/17 20:30 Room Air 05/25/17 20:07 105 05/25/17 20:00 98.3 89 18 92/62 (72) 95 05/25/17 16:00 97.5 91 20 117/63 (81) 98 I/O 05/25/17 05/25/17 05/25/17 05/26/17 05/26/17 05/26/17 07:00 15:00 23:00 07:00 15:00 23:00 Intake Total 480 ml Output Total 2000 ml 1200 ml 2000 ml Balance -2000 ml -720 ml -2000 ml Intake Oral 480 ml Output Urine Total 2000 ml 1200 ml 2000 ml # Bowel Movements 3 Result Diagram: 05/26/17 0645 05/26/17 0645 Imaging Last Impressions Abdomen Ultrasound 05/24/17 0000 Signed Impressions: Service Date/Time: Wednesday, May 24, 2017 13:22 - CONCLUSION: 1. Right pleural effusion noted. 2. Unremarkable gallbladder. 3. The hepatic veins appear mildly dilated. There is no focal lesion. Hai Cesar MD Chest X-Ray 05/23/17 1520 Signed Impressions: Service Date/Time: Tuesday, May 23, 2017 15:40 - CONCLUSION: Mild cardiac silhouette enlargement. No other acute cardiopulmonary disease identified. Domingo Morris MD Objective Remarks GENERAL: Awake and alert and in no acute distress. SKIN: warm/dry. Normal color and turgor. HEAD: Normocephalic. Atraumatic. EYES: Pupils equal and round. No scleral icterus. No injection or drainage. ENT: No nasal bleeding or discharge. Mucous membranes pink and moist. NECK: Trachea midline. Full range of motion without pain.. CARDIOVASCULAR: Irregularly irregular.. RESPIRATORY: No accessory muscle use. Clear to auscultation. Breath sounds equal bilaterally. GASTROINTESTINAL: Abdomen soft. Nontender. Bowel sounds present. Nondistended. MUSCULOSKELETAL: No obvious deformities. 2+ pretibial pitting edema. NEUROLOGICAL: Awake and alert. No obvious cranial nerve deficits. Motor grossly within normal limits. Normal speech. PSYCHIATRIC: Appropriate mood and affect; insight and judgment normal. Medications and IVs Current Medications Medications (Trade) Dose Ordered Sig/Brandie Route Start Time Stop Time Status Last Admin (KlonoPIN) 0.5 mg HS PO 05/23/17 21:00 05/25/17 21:34 (NS Flush) 2 ml UNSCH PRN IV FLUSH 05/23/17 18:00 (NS Flush) 2 ml BID IV FLUSH 05/23/17 21:00 05/25/17 21:37 (Tylenol) 650 mg Q4H PRN PO 05/23/17 18:00 05/24/17 03:47 (Zofran Inj) 4 mg Q6H PRN IVP 05/23/17 18:00 (Narcan Inj) 0.4 mg UNSCH PRN IV PUSH 05/23/17 18:00 (Sonja-Colace) 1 tab BID PO 05/23/17 21:00 05/25/17 09:55 (Milk Of Magnesia Liq) 30 ml Q12H PRN PO 05/23/17 18:00 (Senokot) 17.2 mg Q12H PRN PO 05/23/17 18:00 (Dulcolax Supp) 10 mg DAILY PRN RECTAL 05/23/17 18:00 (Lactulose Liq) 30 ml DAILY PRN PO 05/23/17 18:00 (Zoloft) 150 mg HS PO 05/23/17 22:16 05/25/17 21:34 (Morphine Inj) 1 mg Q4H PRN IV PUSH 05/24/17 08:45 (Lasix Inj) 40 mg BID@ IV PUSH 05/24/17 18:00 05/26/17 10:25 (KCl) 20 meq QID PO 05/24/17 13:00 05/26/17 12:40 (Lopressor) 25 mg Q6HR PO 05/24/17 12:00 05/26/17 12:40 (Lanoxin) 0.25 mg DAILY PO 05/26/17 09:00 05/26/17 10:24 (Prinivil) 5 mg DAILY PO 05/26/17 09:00 05/26/17 10:24 A/P Assessment and Plan New Onset of Atrial Fibrillation/ Acute systolic CHF EKG with no ST elevation or depression, Atrial Fibrillation with RVR, with symptoms of SOB, cough and peripheral edema. Trop peaked at 1.44. Cardiology consult appreciated. Echocardiogram EF 25-30%; Mild to Moderate dilated left ventricle; Left atrial size moderate dilation; Mild to moderate mitral valve regurgitation; Small Pericardial effusion. - continue cardiac regimen. - cath in AM per cardiology. - continue IV Lasix BID. Elevated LFTs Probable passive edema/ischemia. Hepatitis profile negative and HIV negative. Hepatic US negative for pathology. - trend as needed. Improving. Acute Kidney Injury Kidney ultrasound negative for pathology, secondary to IV Diuretics. - stable. Monitor. DVT prophylaxis: Hai Wadsworth DO May 26, 2017 15:23
--- NOTE | 2017-05-26 16:52 | PD.CARD.PN ---
Subjective Subjective Remarks Doing well, no chest pain/SOB Afib controlled Still with lower extremity edema but much better Objective Medications Current Medications Medications (Trade) Dose Ordered Sig/Brandie Route Start Time Stop Time Status Last Admin (KlonoPIN) 0.5 mg HS PO 05/23/17 21:00 05/25/17 21:34 (NS Flush) 2 ml UNSCH PRN IV FLUSH 05/23/17 18:00 (NS Flush) 2 ml BID IV FLUSH 05/23/17 21:00 05/25/17 21:37 (Tylenol) 650 mg Q4H PRN PO 05/23/17 18:00 05/24/17 03:47 (Zofran Inj) 4 mg Q6H PRN IVP 05/23/17 18:00 (Narcan Inj) 0.4 mg UNSCH PRN IV PUSH 05/23/17 18:00 (Sonja-Colace) 1 tab BID PO 05/23/17 21:00 05/25/17 09:55 (Milk Of Magnesia Liq) 30 ml Q12H PRN PO 05/23/17 18:00 (Senokot) 17.2 mg Q12H PRN PO 05/23/17 18:00 (Dulcolax Supp) 10 mg DAILY PRN RECTAL 05/23/17 18:00 (Lactulose Liq) 30 ml DAILY PRN PO 05/23/17 18:00 (Zoloft) 150 mg HS PO 05/23/17 22:16 05/25/17 21:34 (Morphine Inj) 1 mg Q4H PRN IV PUSH 05/24/17 08:45 (Lasix Inj) 40 mg BID@ IV PUSH 05/24/17 18:00 05/26/17 10:25 (KCl) 20 meq QID PO 05/24/17 13:00 05/26/17 12:40 (Lopressor) 25 mg Q6HR PO 05/24/17 12:00 05/26/17 12:40 (Lanoxin) 0.25 mg DAILY PO 05/26/17 09:00 05/26/17 10:24 (Prinivil) 5 mg DAILY PO 05/26/17 09:00 05/26/17 10:24 Vital Signs / I&O Vital Signs Date Time Temp Pulse Resp B/P (MAP) Pulse Ox O2 Delivery O2 Flow Rate FiO2 05/26/17 12:00 82 05/26/17 08:00 87 05/26/17 08:00 96 05/26/17 08:00 96 Room Air 21 05/26/17 08:00 97.5 85 20 97/66 (76) 97 05/26/17 04:00 97.2 83 18 95/53 (67) 96 05/26/17 03:57 79 05/26/17 00:00 97.4 82 16 99/73 (82) 96 05/25/17 23:58 87 05/25/17 21:09 98 05/25/17 20:30 Room Air 05/25/17 20:07 105 05/25/17 20:00 98.3 89 18 92/62 (72) 95 I/O 05/25/17 05/25/17 05/25/17 05/26/17 05/26/17 05/26/17 07:00 15:00 23:00 07:00 15:00 23:00 Intake Total 480 ml Output Total 2000 ml 1200 ml 2000 ml Balance -2000 ml -720 ml -2000 ml Intake Oral 480 ml Output Urine Total 2000 ml 1200 ml 2000 ml # Bowel Movements 3 Physical Exam GENERAL: NAD, AAOx3 SKIN: Warm and dry. HEAD: Atraumatic. Normocephalic. EYES: Pupils equal and round. No scleral icterus. No injection or drainage. ENT: No nasal bleeding or discharge. Mucous membranes pink and moist. NECK: Trachea midline. No JVD. CARDIOVASCULAR: Irregularly irregular RESPIRATORY: No accessory muscle use. Clear to auscultation. Breath sounds equal bilaterally. GASTROINTESTINAL: Abdomen soft, non-tender, nondistended. Hepatic and splenic margins not palpable. MUSCULOSKELETAL: 1-2+ pitting edema from ankles into feet NEUROLOGICAL: Awake and alert. No obvious cranial nerve deficits. Motor grossly within normal limits. Five out of 5 muscle strength in the arms and legs. Normal speech. PSYCHIATRIC: Appropriate mood and affect; insight and judgment normal. Laboratory Laboratory Tests Test 05/26/17 06:45 White Blood Count 10.3 TH/MM3 Red Blood Count 4.49 MIL/MM3 Hemoglobin 14.4 GM/DL Hematocrit 41.9 % Mean Corpuscular Volume 93.5 FL Mean Corpuscular Hemoglobin 32.0 PG Mean Corpuscular Hemoglobin Concent 34.3 % Red Cell Distribution Width 14.8 % Platelet Count 186 TH/MM3 Mean Platelet Volume 9.1 FL Blood Urea Nitrogen 24 MG/DL Creatinine 1.38 MG/DL Random Glucose 85 MG/DL Calcium Level 8.6 MG/DL Sodium Level 141 MEQ/L Potassium Level 4.2 MEQ/L Chloride Level 104 MEQ/L Carbon Dioxide Level 31.9 MEQ/L Anion Gap 5 MEQ/L Estimat Glomerular Filtration Rate 52 ML/MIN Assessment and Plan Problem List: (1) Acute systolic CHF (congestive heart failure) ICD Codes: I50.21 - Acute systolic (congestive) heart failure (2) Dilated cardiomyopathy ICD Codes: I42.0 - Dilated cardiomyopathy (3) Atrial fibrillation with rapid ventricular response ICD Codes: I48.91 - Unspecified atrial fibrillation (4) Elevated troponin ICD Codes: R74.8 - Abnormal levels of other serum enzymes Status: Acute Assessment and Plan 1) New onset cardiomyopathy with EF 25-30% Most likely secondary to Afib with RVR Significant CAD should be ruled out, plan for RHC/LHC tomorrow from radial/ brachial 2) Afib with RVR Now controlled on Lopressor No anticoagulation at this time until cardiac catheterization, will plan to start on Eliquis after the cath (should be 5mg BID) 3) Elevated troponin Most likely due to Afib with RVR and CHF Rule out significant CAD as a cause 4) NPO after midnight Lionel Farias DO May 26, 2017 16:52
[2017-05-26] MEDS: clonazePAM 0.5 MG TAB PO SCH (20:44)
[2017-05-26] MEDS: SERTRALINE HCL 50 MG TAB PO SCH (20:44)
[2017-05-27] VITALS (7 sets, daily range): BP systolic 95–108; BP diastolic 54–80; PULSE 74–101; RESP 18–20; TEMP 97.3–98.3; O2SAT 94–98
[2017-05-27] MEDS: METOPROLOL TARTRATE 25 MG TAB PO SCH ×4 (06:20→18:00)
[2017-05-27] MEDS: SODIUM CHLORIDE 0.9% FLUSH 10 ML FLUSH IV FLUSH SCH ×2 (08:52→20:55)
[2017-05-27] MEDS: DIGOXIN 0.25 MG TAB PO SCH (08:52)
[2017-05-27] MEDS: DOCUSATE SODIUM 50 MG/SENNA 8.6 MG TAB PO SCH ×2 (08:53→20:55)
[2017-05-27] MEDS: POTASSIUM CHLORIDE 20 MEQ CONTROLLED RELEASE TAB PO SCH ×4 (08:53→20:55)
[2017-05-27] MEDS: LISINOPRIL 5 MG TAB PO SCH (08:53)
[2017-05-27] MEDS: FUROSEMIDE 20 MG/2 ML VIAL IV PUSH SCH (08:54)
[2017-05-27 09:41] LABS: BICARBONATE 29.5 MEQ/L (21.0-32.0); CREATININE 1.21 MG/DL (0.60-1.30); MAGNESIUM 2.3 MG/DL (1.5-2.5)
[2017-05-27] MEDS ORDERED: HEPARIN-NS/PF INJ 1,000 ML ONE (10:36)
[2017-05-27] MEDS ORDERED: MIDAZOLAM HCL 2 MG/2 ML VIAL ONE (10:46)
[2017-05-27] MEDS ORDERED: NITROGLYCERIN INJ 5 ML ONE (10:47)
[2017-05-27] MEDS ORDERED: HEPARIN SODIUM - IV 10,000 UNITS/10 ML VIAL ONE (10:47)
[2017-05-27] MEDS ORDERED: VERAPAMIL HCL 5 MG/2 ML VIAL ONE (10:47)
--- NOTE | 2017-05-27 11:52 | CATHPROC ---
[employer] HIS Report Study Information Study Number Admission Scheduled Start Study Start [id number] May 23 2017 5:48PM 05/26/2017 May 27 2017 10:30AM [facility] Service Cardiac Catheterization Admit Source Facility Department Other [facility] - Police Judge Physician and Clinical Staff Initial MD Farias, Lionel Nuclear Operator Mauro Arnold RN Other cathlab, cathlab Recorder Surendra Maza RCIS(BS) Scrub Amy Mantilla,FAN RUNNER TECH2 Procedures Performed Procedure Location (Site) Vessel Name Coronary Angiograms LCA Left Coronary Coronary Angiograms RCA Right Coronary Equipment Time Personnel Counselor Description Size Mfg Part Number Used/Scraped CATHETER, FR5 SWAN JAIMIE 10:32 InnaVirVax FR 5 [id number] *[id number] Used MONITOR TRANSDUCER, TRUWAVE [id number] 10:31 Crowdx MARIANO * Used W/STOCKCOCK *[id number] 534-548T *[id number] 534-520T *[id number] 10:31 Vaim[employer]om PACK, CCL CUSTOM * Used *[id number] 10:31 [employer] SUPPORT, ARTERIAL ADULT 24963 *[id number] Used [id number] 10:49 MEDTRONIC JR 4.0 DXTERITY CATHETER FR 5 Used *[id number] BAND, RADIAL COMPRESSION TR [id number] 11:38 [employer] MEDICAL 24CM Used SHORT 24 *[id number] 10:31 Pogojo WIRE, EXCHANGE 260CM 3MMJ 260CM Used *[id number] PROBE COVER, STERILE [id number] 11:10 [employer] MEDICAL * Used ULTRASOUND W/ GEL *[id number] 10:31 NAMIC MANIFOLD, 4 PORT * Used *[id number] 10:31 NYCOMED OMNIPAQUE, 350 MG, 150ML 150ML [id number] Used [id number] 10:31 CHAVES MEDICAL BLANKET,WARM AIR CCL * Used *[id number] SHEATH, FR6 TRANSRADIAL RM*[id number] 10:32 TERUMO MEDICAL FR 6 Used SLENDER 10CM *[id number] SHEATH, FR6 TRANSRADIAL RM*[id number] 10:31 TERUMO MEDICAL FR 6 Used SLENDER 10CM *[id number] History: Current Medications Medication Dosage/Unit Route Frequency Last Date/Time Taken LOPRESSOR LOVENOX ASA History: Allergies Allergy Reaction No Known Allergies History: Risk Factors Family History of Hypertension Dyslipidemia Previous ID Previous Heart Failure Premature CAD Yes Yes Yes No Yes Prior Valve Prior PCI Prior CABG Surgery No No No Cerebrovascular Peripheral Artery Chronic Lung On Dialysis Diabetes Disease Disease Disease No No No No No History: Stress Tests Stress or Imaging Studies Performed No History: Other Disease Selection Items CHF History: Other Current Smoker No Labs Hgb (g/dl) Hct (%) WBC (l/cumm) Platelets (thousands) 11.60-17.00 35.00-51.00 4.00-11.00 150.00-450.00 14.4 41.9 10.3 186 Glucose (mg/dl) BUN (mg/dl) Creatinine (mg/dl) BUN:Creatinine (1:x) 74.00-106.00 7.00-18.00 0.50-1.30 10.00-20.00 92 20 1.2 16.7 Na (meq/l) K (meq/l) 136.00-145.00 3.50-5.10 139 4 Troponin I (ng/ml) CPK (u/l) CPK-MB (ng/ML) 0.02-0.05 26.00-308.00 0.50-3.60 1.05 206 Not Drawn Medication Medication Total Dose (Bolus/Oral) Medication Total Dosage/Unit 1% XYLOCAINE 3 mL FENTANYL 50 mcg RADIAL COCKTAIL 5 mL (Bolus) Medications (Bolus/Oral) Medication Time Given Dosage/Unit Administered By Reason FENTANYL 05/27/2017 11:06:00 AM 50 mcg Mauro Arnold 50 mcg FENTANYL given in lab by Mauro Arnold, RN in Left Forearm via Peripheral IV. Ordered by Lionel Torrez 1% XYLOCAINE 05/27/2017 11:06:41 AM 3 mL Lionel Farias 3 mL 1% XYLOCAINE given in lab by Lionel Farias in Right Radial via Subcutaneous. Ntg 200mcg Verapamil 2.5mg Heparin RADIAL COCKTAIL 05/27/2017 11:09:46 AM 5 mL (Bolus) Lionel Farias 2500U 5 mL (Bolus) RADIAL COCKTAIL given in lab by Lionel Farias via Radial. Using [Solution Name]. R daja: Ntg 200mcg Verapamil 2.5mg Heparin 3400U. Medication (Drip) Medication Time Given Dosage/Unit Concentration/Unit Diluent (ml) Solution IV Solutions 05/27/2017 10:30:36 AM 50 mL (IV) NaCl .9 Patient arrived on IV Solutions in Left Forearm via Peripheral IV. Pump/Drip Flow using NaCl .9. Initial Case Assessment Cardiovascular HR NIBP Chest Pain 76 114/86 0 Edema Present Skin color Skin Mild Normal Warm Dry Circulatory - Right Pulses Dorsalis Pedis Femoral Radial 3 3 3 Scale (0,1,2,3,4,d) Circulatory - Left Pulses Dorsalis Pedis Femoral Radial 3 3 Scale (0,1,2,3,4,d) Neurological State Oriented to time-place- Alert Moves all extremities person Respiration - General Respiration Rate SpO2 (%) (B/min) 21 97 Final Case Assessment Cardiovascular HR NIBP Chest Pain 76 114/86 0 Edema Present Skin color Skin Mild Normal Warm Dry Circulatory - Right Pulses Dorsalis Pedis Femoral Radial 3 3 3 Scale (0,1,2,3,4,d) Circulatory - Left Pulses Dorsalis Pedis Femoral Radial 3 3 Scale (0,1,2,3,4,d) Neurological State Oriented to time-place- Alert Moves all extremities person Respiration - General Respiration Rate SpO2 (%) (B/min) 21 97 Chronological Log Time Study Chronological Log 10:30:27 Patient arrived via Bed. 10:30:28 Patient Name, D.O.B, / Armband Verified By R.N. 10:30:28 Consent signed by the physician and the patient and verified by the Police Judge staff. 10:30:29 Pre-op and post- op instructions given; patient acknowledges understanding of instructions. 10:30:29 Verbal Stimulation=2 Physical Stimulation=2 Airway=2 Respiration=2 TOTAL=8. (0=absent, 1=li mited, 2=present) 10:30:30 Presedation assessment performed by Police Judge RN. 10:30:31 Allens test performed on the right radial and ulnar artery. positive. 10:30:31 Immediate Presedation assesment performed by physician. 10:30:32 Patient has been NPO for More than 6Hrs. 10:30:32 Skin Breakdown- none per patient 10:30:33 Patient Warmer Placed on the Table. 10:30:34 Lacy Prominences Protected 10:30:35 A # 20 IV was noted in the Forearm (left). Grade = 0 10:30:36 Patient arrived on IV Solutions in Left Forearm via Peripheral IV. Pump/Drip Flow using NaC l .9. 10:30:37 History and physical on the chart or being dictated. Assessment: Initial Case, HR=76 BPM, VYVF=243/86 mmhg, Chest Pain=0, Edema=Mild, Color=Normal, Skin = Warm, Dry Right Pulses: Juice Ped=3, Femoral=3, Radial=3 10:39:17 Left Pulses: Juice Ped=3, Femoral=3 Neurological: State=Alert, Ox3, GRAY Respiration: Resp=21 B/min, SpO2=97 % Vitals capture started with the following parameters, Patient=Adult, Interval=5 min, Initial Pr oxaobr=810 mmHg, 10:39:35 Deflation Rate=5 mmHg, Cuff placed on Left Arm 10:39:51 Reference ECG taken 10:40:03 HR=80 bpm, MGQM=059/86 mmhg, SpO2=97.0 %, Resp=22 B/min, Pain=0, Guanako=10, Viera=2 10:41:12 Right radial, right brachial, and groin(s) prepped with 2% chlorhexidine, and draped after a 3 min. waiting time. 10:45:04 HR=76 bpm, GMKB=388/84 mmhg, SpO2=98.0 %, Resp=16 B/min, Pain=0, Guanako=10, Viera=2 10:49:24 Pressure channel 1 zeroed. 10:50:05 HR=95 bpm, NIBP=74/53 mmhg, SpO2=97.0 %, Resp=12 B/min 10:50:17 MD paged Vitals capture started with the following parameters, Patient=Adult, Interval=5 min, Initial Pr yjabbh=394 mmHg, 10:51:02 Deflation Rate=5 mmHg, Cuff placed on Left Arm 10:52:02 HR=88 bpm, ZBPT=249/101 mmhg, SpO2=99.0 %, Resp=18 B/min, Pain=0, Guanako=10, Viera=2 10:56:37 HR=89 bpm, SGZB=968/86 mmhg, SpO2=98.0 %, Resp=20 B/min, Pain=0, Guanako=10, Viera=2 10:59:24 MD responded 11:01:42 HR=83 bpm, KNDT=496/58 mmhg, UyQ7=596.0 %, Resp=15 B/min, Pain=0, Guanako=10, Viera=2 11:02:50 MD arrived. 11:03:45 Immediate Presedation assesment performed by physician. 11:03:47 Contrast Scanned Time Out. Correct patient, correct procedure, correct physician, power injector not loaded with contrast with surgical 11:05:28 team present. Time Out Concurred by MD and individual staff in procedure. 11:06:00 50 mcg FENTANYL given in lab by Mauro Arnold, SHYANNE in Left Forearm via Peripheral IV. Order ed by Lionel Fairas. 11:06:35 HR=83 bpm, SFYD=168/87 mmhg, SpO2=96.0 %, Resp=20 B/min, Pain=0, Guanako=10, Viera=2 11:06:39 Case Start 11:06:41 3 mL 1% XYLOCAINE given in lab by Lionel Farias in Right Radial via Subcutaneous. 11:07:30 Access site was right Radial Artery. A SHEATH, FR6 TRANSRADIAL SLENDER 10CM FR 6 was advanced into the Radial (right) using the Perc utaneous 11:08:10 technique. 5 mL (Bolus) RADIAL COCKTAIL given in lab by Lionel Farias via Radial. Using [Solution Na me]. Reason: Ntg 11:09:46 200mcg Verapamil 2.5mg Heparin 3400U. 11:11:36 HR=78 bpm, NIBP=97/64 mmhg, SpO2=96 %, Resp=21 B/min, Pain=0, Guanako=10, Viera=2 11:16:16 Access site was Right Brachial Vein. A SHEATH, FR6 TRANSRADIAL SLENDER 10CM FR 6 was advanced into the Brach. Vein (right) using the Percutaneous 11:16:36 technique. 11:17:00 A CATHETER, FR5 SWAN JAIMIE MONITOR FR 5 was inserted via Brach. Vein (right) 11:17:06 HR=93 bpm, UZDG=657/91 mmhg, VdE6=963.0 %, Resp=15 B/min, Pain=0, Guanako=10, Viera=2 11:20:01 Pressure channel 1 zeroed. Recorded Pressure: PCW, HR=94, Condition=Condition 1 11:20:29 (Pulmonary Capillary Wedge) PCW 11:21:27 Saturation: Site=PA (Pulmonary Artery) , O2=75.4 %, Hgb=14.4 gm/dl, Condition=Condition 1. Used in calculation. 11:21:38 HR=77 bpm, FFIK=016/72 mmhg, SpO2=96.0 %, Resp=15 B/min, Pain=0, Guanako=10, Viera=2 Recorded Pressure: MPA, HR=82, Condition=Condition 1 11:22:39 (Main Pulmonary Artery) MPA 12/01/14 11:22:57 Saturation: Site=Ao (Aorta) , O2=98.5 %, Hgb=14.4 gm/dl, Condition=Condition 1. Used in bj culation. Recorded Pressure: RV, HR=92, Condition=Condition 1 11:24:08 (Right Ventricle) RV Recorded Pressure: RA, HR=74, Condition=Condition 1 11:24:43 (Right Atrium) RA 11:24:57 Gunlock Jaimie Catheter Removed A JR 4.0 DXTERITY CATHETER FR 5 was advanced over a wire. OMNIPAQUE, 350 MG, 150ML 150ML was us ed for 11:25:10 injections. 11:26:35 HR=81 bpm, TJLB=539/85 mmhg, CtS5=271 %, Resp=19 B/min, Pain=0, Guanako=10, Viera=2 Recorded Pressure: LV, HR=81, Condition=Condition 1 11:26:45 (Left Ventricle) LV 90/0/3 Recorded Pressure: LV, Ao, HR=88, Condition=Condition 1 11:27:01 (Left Ventricle) LV 81/-1/3, (Aorta) Ao 90/65/77 11:27:54 The RCA was injected and visualized at various angles. OMNIPAQUE, 350 MG, 150ML 150ML used . After removing the current catheter a JL 4.0 INFINITI CATHETER FR 5 was advanced over a WIRE, E XCHANGE 260CM 11:28:35 3MMJ 260CM. Recorded Pressure: Ao, HR=74, Condition=Condition 1 11:28:37 (Aorta) Ao 87/61/74 11:30:53 The LCA was injected and visualized at various angles. OMNIPAQUE, 350 MG, 150ML 150ML used . Recorded Pressure: Ao, HR=82, Condition=Condition 1 11:31:27 (Aorta) Ao 91/67/79 11:31:38 HR=75 bpm, CYWB=765/64 mmhg, SpO2=95.0 %, Resp=20 B/min, Pain=0, Guanako=10, Viera=2 After removing the current catheter a AR MOD INFINITI CATHETER FR 5 was advanced over a WIRE, E XCHANGE 260CM 11:32:23 3MMJ 260CM. 11:35:05 The RCA was injected and visualized at various angles. OMNIPAQUE, 350 MG, 150ML 150ML used . 11:35:11 Catheter was removed 11:35:57 Activated Clotting Time Drawn 11:36:31 HR=93 bpm, UJLN=505/88 mmhg, SpO2=98.0 %, Resp=16 B/min, Pain=0, Guanako=10, Viera=2 Radial Compression Device Used. 9 mLs of air placed in BAND, RADIAL COMPRESSION TR SHORT 24 24C M. Affected 11:37:05 hand 95 % O2 saturation. 11:39:43 Case End 11:39:43 Catheter(s) removed without difficulty 11:39:50 ACT (Normal Range 90-180) = 171 11:40:18 Sterile dressing applied to site 11:40:19 No case complications noted. 11:40:21 Cine recording checked. 11:40:22 Bedside Report will be given. 11:40:27 Contrast Scanned 11:41:38 HR=75 bpm, EWBW=793/73 mmhg, SpO2=95.0 %, Resp=18 B/min, Pain=0, Guanako=10, Viera=2 11:42:26 Right bracial sheath(s) left in place, will be removed in Holding Area 11:42:40 A Left and Right Heart Cath was performed. Assessment: Final Case, HR=76 BPM, XVQV=439/86 mmhg, Chest Pain=0, Edema=Mild, Color=Normal, Sk in = Warm, Dry Right Pulses: Juice Ped=3, Femoral=3, Radial=3 11:42:52 Left Pulses: Juice Ped=3, Femoral=3 Neurological: State=Alert, Ox3, GRAY Respiration: Resp=21 B/min, SpO2=97 % 11:44:43 Patient moved to stretcher 11:46:00 Vitals capture stopped. End Study - Contrast Media Used In Study Contrast Total Opened (mL) Total Used (mL) Total Wasted (mL) Omnipaque 50 50 0 End Study - Maximum Contrast Load Max Contrast Load (mL) 352.3 End Study - Radiation Exposure Fluoro Time (minutes) 3.7 End Study - Patient Disposition Complications Transferred To Interventional Outcome No Telemetry Bed No attempt made
[2017-05-27] MEDS ORDERED: IOHEXOL 350 MG/ML 50 ML BTL (for Cath Lab) OTHER ONE (11:54)
[2017-05-27] MEDS ORDERED: MISC INFORMATION XX ONE (12:00)
[2017-05-27] MEDS ORDERED: SODIUM CHLOR 0.9% 250 ML INJ 250 ML IV ONE ×2 (16:00→16:45)
--- NOTE | 2017-05-27 16:00 | HHI.PR ---
Subjective Remarks The patient was seen following catheterization. He was looking forward to going home. He felt well. Discussed with nursing at the bedside. Objective Vitals Vital Signs Date Time Temp Pulse Resp B/P (MAP) Pulse Ox O2 Delivery O2 Flow Rate FiO2 05/27/17 13:25 95 Room Air 05/27/17 08:00 93 05/27/17 08:00 97.6 82 20 105/80 (88) 95 05/27/17 04:00 97 05/27/17 04:00 97.9 92 18 106/54 (71) 98 05/27/17 04:00 Room Air 05/27/17 00:00 Room Air 05/27/17 00:00 98.3 74 20 108/74 (85) 94 05/27/17 00:00 87 05/26/17 20:35 97.5 78 18 96/54 (68) 94 05/26/17 20:35 Room Air 05/26/17 20:00 76 05/26/17 16:45 97.1 81 16 92/68 (76) 98 05/26/17 16:00 76 I/O 05/26/17 05/26/17 05/26/17 05/27/17 05/27/17 05/27/17 07:00 15:00 23:00 07:00 15:00 23:00 Intake Total 840 ml 400 ml Output Total 2000 ml 3275 ml 500 ml Balance -2000 ml -2435 ml -100 ml Intake Oral 840 ml 400 ml Output Urine Total 2000 ml 3275 ml 500 ml # Bowel Movements 2 0 Result Diagram: 05/26/17 0645 05/27/17 0821 Imaging Last Impressions Abdomen Ultrasound 05/24/17 0000 Signed Impressions: Service Date/Time: Wednesday, May 24, 2017 13:22 - CONCLUSION: 1. Right pleural effusion noted. 2. Unremarkable gallbladder. 3. The hepatic veins appear mildly dilated. There is no focal lesion. Hai Cesar MD Chest X-Ray 05/23/17 1520 Signed Impressions: Service Date/Time: Tuesday, May 23, 2017 15:40 - CONCLUSION: Mild cardiac silhouette enlargement. No other acute cardiopulmonary disease identified. Domingo Morris MD Objective Remarks GENERAL: Awake and alert and in no acute distress. SKIN: warm/dry. Normal color and turgor. HEAD: Normocephalic. Atraumatic. EYES: Pupils equal and round. No scleral icterus. No injection or drainage. ENT: No nasal bleeding or discharge. Mucous membranes pink and moist. NECK: Trachea midline. Full range of motion without pain.. CARDIOVASCULAR: Irregularly irregular. RESPIRATORY: No accessory muscle use. Clear to auscultation. Breath sounds equal bilaterally. GASTROINTESTINAL: Abdomen soft. Nontender. Bowel sounds present. Nondistended. MUSCULOSKELETAL: No obvious deformities. No edema. NEUROLOGICAL: Awake and alert. No obvious cranial nerve deficits. Motor grossly within normal limits. Normal speech. PSYCHIATRIC: Appropriate mood and affect; insight and judgment normal. Medications and IVs Current Medications Medications (Trade) Dose Ordered Sig/Brandie Route Start Time Stop Time Status Last Admin (KlonoPIN) 0.5 mg HS PO 05/23/17 21:00 05/26/17 20:44 (NS Flush) 2 ml UNSCH PRN IV FLUSH 05/23/17 18:00 (NS Flush) 2 ml BID IV FLUSH 05/23/17 21:00 05/27/17 08:52 (Tylenol) 650 mg Q4H PRN PO 05/23/17 18:00 05/24/17 03:47 (Zofran Inj) 4 mg Q6H PRN IVP 05/23/17 18:00 (Narcan Inj) 0.4 mg UNSCH PRN IV PUSH 05/23/17 18:00 (Sonja-Colace) 1 tab BID PO 05/23/17 21:00 05/25/17 09:55 (Milk Of Magnesia Liq) 30 ml Q12H PRN PO 05/23/17 18:00 (Senokot) 17.2 mg Q12H PRN PO 05/23/17 18:00 (Dulcolax Supp) 10 mg DAILY PRN RECTAL 05/23/17 18:00 (Lactulose Liq) 30 ml DAILY PRN PO 05/23/17 18:00 (Zoloft) 150 mg HS PO 05/23/17 22:16 05/26/17 20:44 (Morphine Inj) 1 mg Q4H PRN IV PUSH 05/24/17 08:45 (KCl) 20 meq QID PO 05/24/17 13:00 05/27/17 15:26 (Lopressor) 25 mg Q6HR PO 05/24/17 12:00 05/27/17 06:20 (Lanoxin) 0.25 mg DAILY PO 05/26/17 09:00 05/27/17 08:52 (Prinivil) 5 mg DAILY PO 05/26/17 09:00 05/27/17 08:53 (Lasix) 20 mg DAILY PO 05/28/17 09:00 A/P Assessment and Plan New Onset of Atrial Fibrillation/ Acute systolic CHF EKG with no ST elevation or depression, Atrial Fibrillation with RVR, with symptoms of SOB, cough and peripheral edema. Trop peaked at 1.44. Cardiology consult appreciated. Echocardiogram EF 25-30%; Mild to Moderate dilated left ventricle; Left atrial size moderate dilation; Mild to moderate mitral valve regurgitation; Small Pericardial effusion. Cath 05/27 without obstructive coronary disease. - continue cardiac regimen. - continue PO Lasix. - continue Eliquis. Hypotension Likely s/t cath and cardiac meds. - NS bolus 250 ml x 1. - holding parameters of lisinopril and Lopressor. Elevated LFTs Probable passive edema/ischemia. Hepatitis profile negative and HIV negative. Hepatic US negative for pathology. - trend LFTs. Improving. Acute Kidney Injury Kidney ultrasound negative for pathology, secondary to IV Diuretics. - stable. Monitor. DVT prophylaxis: Hai Vega DO May 27, 2017 16:00
[2017-05-27] MEDS ORDERED: VERAPAMIL HCL 5 MG/2 ML VIAL OTHER ONE (16:30)
--- NOTE | 2017-05-27 19:19 | PD.CARD.PN ---
Subjective Subjective Remarks Patient was seen earlier today, late entry note Doing well post cath Afib controlled Still with lower extremity edema but much better Objective Medications Current Medications Medications (Trade) Dose Ordered Sig/Brandie Route Start Time Stop Time Status Last Admin (KlonoPIN) 0.5 mg HS PO 05/23/17 21:00 05/26/17 20:44 (NS Flush) 2 ml UNSCH PRN IV FLUSH 05/23/17 18:00 (NS Flush) 2 ml BID IV FLUSH 05/23/17 21:00 05/27/17 08:52 (Tylenol) 650 mg Q4H PRN PO 05/23/17 18:00 05/24/17 03:47 (Zofran Inj) 4 mg Q6H PRN IVP 05/23/17 18:00 (Narcan Inj) 0.4 mg UNSCH PRN IV PUSH 05/23/17 18:00 (Sonja-Colace) 1 tab BID PO 05/23/17 21:00 05/25/17 09:55 (Milk Of Magnesia Liq) 30 ml Q12H PRN PO 05/23/17 18:00 (Senokot) 17.2 mg Q12H PRN PO 05/23/17 18:00 (Dulcolax Supp) 10 mg DAILY PRN RECTAL 05/23/17 18:00 (Lactulose Liq) 30 ml DAILY PRN PO 05/23/17 18:00 (Zoloft) 150 mg HS PO 05/23/17 22:16 05/26/17 20:44 (Morphine Inj) 1 mg Q4H PRN IV PUSH 05/24/17 08:45 (KCl) 20 meq QID PO 05/24/17 13:00 05/27/17 15:26 (Lopressor) 25 mg Q6HR PO 05/24/17 12:00 05/27/17 06:20 (Lanoxin) 0.25 mg DAILY PO 05/26/17 09:00 05/27/17 08:52 (Prinivil) 5 mg DAILY PO 05/26/17 09:00 05/27/17 08:53 (Lasix) 20 mg DAILY PO 05/28/17 09:00 Vital Signs / I&O Vital Signs Date Time Temp Pulse Resp B/P (MAP) Pulse Ox O2 Delivery O2 Flow Rate FiO2 05/27/17 16:00 97 05/27/17 13:25 95 Room Air 05/27/17 08:00 93 05/27/17 08:00 97.6 82 20 105/80 (88) 95 05/27/17 07:00 Room Air 05/27/17 04:00 97 05/27/17 04:00 97.9 92 18 106/54 (71) 98 05/27/17 04:00 Room Air 05/27/17 00:00 Room Air 05/27/17 00:00 98.3 74 20 108/74 (85) 94 05/27/17 00:00 87 05/26/17 20:35 97.5 78 18 96/54 (68) 94 05/26/17 20:35 Room Air 05/26/17 20:00 76 I/O 05/26/17 05/26/17 05/26/17 05/27/17 05/27/17 05/27/17 07:00 15:00 23:00 07:00 15:00 23:00 Intake Total 840 ml 400 ml 500 ml Output Total 2000 ml 3275 ml 500 ml Balance -2000 ml -2435 ml -100 ml 500 ml Intake Oral 840 ml 400 ml IV Total 500 ml Output Urine Total 2000 ml 3275 ml 500 ml # Bowel Movements 2 0 Physical Exam GENERAL: NAD, AAOx3 SKIN: Warm and dry. HEAD: Atraumatic. Normocephalic. EYES: Pupils equal and round. No scleral icterus. No injection or drainage. ENT: No nasal bleeding or discharge. Mucous membranes pink and moist. NECK: Trachea midline. No JVD. CARDIOVASCULAR: Irregularly irregular RESPIRATORY: No accessory muscle use. Clear to auscultation. Breath sounds equal bilaterally. GASTROINTESTINAL: Abdomen soft, non-tender, nondistended. Hepatic and splenic margins not palpable. MUSCULOSKELETAL: 1-2+ pitting edema from ankles into feet NEUROLOGICAL: Awake and alert. No obvious cranial nerve deficits. Motor grossly within normal limits. Five out of 5 muscle strength in the arms and legs. Normal speech. PSYCHIATRIC: Appropriate mood and affect; insight and judgment normal. Laboratory Laboratory Tests Test 05/27/17 08:21 Blood Urea Nitrogen 20 MG/DL Creatinine 1.21 MG/DL Random Glucose 92 MG/DL Calcium Level 9.0 MG/DL Magnesium Level 2.3 MG/DL Sodium Level 139 MEQ/L Potassium Level 4.0 MEQ/L Chloride Level 103 MEQ/L Carbon Dioxide Level 29.5 MEQ/L Anion Gap 7 MEQ/L Estimat Glomerular Filtration Rate 60 ML/MIN Assessment and Plan Problem List: (1) Acute systolic CHF (congestive heart failure) ICD Codes: I50.21 - Acute systolic (congestive) heart failure (2) Dilated cardiomyopathy ICD Codes: I42.0 - Dilated cardiomyopathy (3) Atrial fibrillation with rapid ventricular response ICD Codes: I48.91 - Unspecified atrial fibrillation (4) Elevated troponin ICD Codes: R74.8 - Abnormal levels of other serum enzymes Status: Acute Assessment and Plan 1) New onset cardiomyopathy with EF 25-30% Most likely secondary to Afib with RVR RHC showing he's been diuresed well LHC showing no significant CAD 2) Afib with RVR Now controlled on Lopressor Restart Eliquis at 5mg BID tomorrow 3) Elevated troponin/NSTEMI Type 2 Most likely due to Afib with RVR and CHF 4) Plan for discharge tomorrow Follow up with Dr. Isaac on discharge Lionel Farias DO May 27, 2017 19:19
[2017-05-27] MEDS: SERTRALINE HCL 50 MG TAB PO SCH (20:55)
[2017-05-27] MEDS: clonazePAM 0.5 MG TAB PO SCH (20:55)
[2017-05-28] VITALS: PULSE 81; PULSE 95
[2017-05-28 00:30] VITALS: BP 96/67; PULSE 86; RESP 20; TEMP 97.1; O2SAT 94
[2017-05-28] MEDS: METOPROLOL TARTRATE 25 MG TAB PO SCH ×3 (00:41→11:40)
[2017-05-28 04:59] VITALS: BP 118/69; PULSE 85; RESP 20; TEMP 97.7; O2SAT 95
[2017-05-28 07:19] LABS: AUTOMATED NEUTROPHIL # 6.4 TH/MM3 (1.8-7.7); BASOPHIL % 0.5 % (0.0-2.0); EOSINOPHIL # 0.1 TH/MM3 (0-0.4); EOSINOPHIL % 0.7 % (0.0-4.0); HEMATOCRIT 45.4 % (39.0-51.0); HEMOGLOBIN 15.7 GM/DL (13.0-17.0); LYMPH % 22.4 % (9.0-44.0); LYMPHOCYTE # 2.1 TH/MM3 (1.0-4.8); MEAN CORPUSCULAR HEMOGLOBIN 32.5 PG (27.0-34.0); MEAN CORPUSCULAR HGB CONC 34.6 % (32.0-36.0); MEAN PLATELET VOLUME 8.7 FL (7.0-11.0); MONO % 8.1 % (0.0-8.0); MONOCYTE # 0.8 TH/MM3 (0-0.9); NEUT % 68.3 % (16.0-70.0); PLATELET COUNT 195 TH/MM3 (150-450); RED BLOOD COUNT 4.82 MIL/MM3 (4.50-5.90); RED CELL DISTRIBUTION WIDTH 14.5 % (11.6-17.2); WHITE BLOOD COUNT 9.4 TH/MM3 (4.0-11.0)
[2017-05-28 07:41] LABS: ALBUMIN 2.7 GM/DL (3.4-5.0); BICARBONATE 30.5 MEQ/L (21.0-32.0); CALCIUM 8.8 MG/DL (8.5-10.1); CREATININE 1.38 MG/DL (0.60-1.30); DIRECT BILIRUBIN ADULT 0.2 MG/DL (0.0-0.2)
[2017-05-28 07:44] LABS: INDIRECT BILIRUBIN 0.7 MG/DL (0.0-0.8); TOTAL BILIRUBIN ADULT 0.9 MG/DL (0.2-1.0); TOTAL PROTEIN 5.6 GM/DL (6.4-8.2)
[2017-05-28 08:00] VITALS: PULSE 85
[2017-05-28 08:41] VITALS: BP 112/84; PULSE 80; RESP 18; TEMP 97.4; O2SAT 94
[2017-05-28] MEDS: POTASSIUM CHLORIDE 20 MEQ CONTROLLED RELEASE TAB PO SCH ×2 (08:58→11:40)
[2017-05-28] MEDS: DIGOXIN 0.25 MG TAB PO SCH (08:58)
[2017-05-28] MEDS: LISINOPRIL 5 MG TAB PO SCH (08:58)
[2017-05-28] MEDS: DOCUSATE SODIUM 50 MG/SENNA 8.6 MG TAB PO SCH (08:59)
[2017-05-28] MEDS ORDERED: APIXABAN 5 MG TABLET PO SCH ×2 (09:00→21:00)
[2017-05-28] MEDS: SODIUM CHLORIDE 0.9% FLUSH 10 ML FLUSH IV FLUSH SCH (09:00)
[2017-05-28] MEDS ORDERED: FUROSEMIDE 20 MG TAB PO SCH (09:00)
[2017-05-28] MEDS ORDERED: DIGO0.25 PO (10:31)
[2017-05-28] MEDS ORDERED: POTA20TA5 PO (10:31)
[2017-05-28] MEDS ORDERED: FURO20TA PO (10:31)
[2017-05-28] MEDS ORDERED: METO25TA3 PO (10:31)
--- NOTE | 2017-05-28 10:33 | HHI.DCPOC ---
Discharge Care Plan Diagnosis: (1) Acute systolic CHF (congestive heart failure) (2) Atrial fibrillation with rapid ventricular response (3) Elevated troponin (4) Hypotension Goals to Promote Your Health * To prevent worsening of your condition and complications * To maintain your health at the optimal level Directions to Meet Your Goals Take your medications as prescribed Follow your dietary instruction Follow activity as directed Keep your appointments as scheduled Take your immunizations and boosters as scheduled If your symptoms worsen call your PCP, if no PCP go to Urgent Care Center or Emergency Room Smoking is Dangerous to Your Health. Avoid second hand smoke Call the 24-hour hour crisis hotline for domestic abuse at Hai Nazario DO May 28, 2017 10:33
--- NOTE | 2017-05-28 10:38 | HHI.DS ---
Discharge Summary Admission Date May 23, 2017 at 17:48 Discharge Date: May 28, 2017 Admitting Diagnosis AF with RVR, CHF, elevated trop (1) Hypotension ICD Code: I95.9 - Hypotension, unspecified (2) Acute systolic CHF (congestive heart failure) ICD Code: I50.21 - Acute systolic (congestive) heart failure Diagnosis: Principal (3) Atrial fibrillation with rapid ventricular response ICD Code: I48.91 - Unspecified atrial fibrillation Diagnosis: Principal Procedures Cardiac catheterization Brief History - From Admission This is a pleasant 66 y/o Male who came to ER with cough and shortness of breath also peripheral edema, that started one week ago, progressively worse He states that he was recently treated by an urgent care center for bronchitis with a Z-Leonel and steroids. The symptoms transiently improved but then "relapsed" about a week ago. He notes that his symptoms are exacerbated by lying down to go to sleep. Patient states that he has never had any cardiac issues. He states that his usual resting heart rate is in the 50s. The symptoms are mild. seen in his bedroom he states he has this symptoms since [place], was seen by urgent care and treated for Bronchitis with antibiotics, given Z Leonel, he got better but last week, started with lower leg edema after flying trip, not improving, but now worsened shortness of breath. came to ER and was admitted for probable Acute coronary syndrome. CBC/BMP: 05/28/17 0626 05/28/17 0626 Significant Findings Laboratory Tests Test 05/26/17 06:45 05/27/17 08:21 05/28/17 06:26 Red Blood Count 4.49 MIL/MM3 (4.50-5.90) Blood Urea Nitrogen 24 MG/DL (7-18) 20 MG/DL (7-18) 20 MG/DL (7-18) Creatinine 1.38 MG/DL (0.60-1.30) 1.38 MG/DL (0.60-1.30) Estimat Glomerular Filtration Rate 52 ML/MIN (>89) 60 ML/MIN (>89) 52 ML/MIN (>89) Monocytes (%) (Auto) 8.1 % (0.0-8.0) Total Protein 5.6 GM/DL (6.4-8.2) Albumin 2.7 GM/DL (3.4-5.0) Imaging Last Impressions Abdomen Ultrasound 05/24/17 0000 Signed Impressions: Service Date/Time: Wednesday, May 24, 2017 13:22 - CONCLUSION: 1. Right pleural effusion noted. 2. Unremarkable gallbladder. 3. The hepatic veins appear mildly dilated. There is no focal lesion. Hai Cesar MD Chest X-Ray 05/23/17 1520 Signed Impressions: Service Date/Time: Tuesday, May 23, 2017 15:40 - CONCLUSION: Mild cardiac silhouette enlargement. No other acute cardiopulmonary disease identified. Domingo Morris MD PE at Discharge GENERAL: Awake, alert and in no acute distress. SKIN: Warm/dry. Normal color and turgor. HEAD: Normocephalic. Atraumatic. EYES: Pupils equal and round. No scleral icterus. No injection or drainage. ENT: No nasal bleeding or discharge. Mucous membranes pink and moist. NECK: Trachea midline. Full range of motion without pain.. CARDIOVASCULAR: Irregularly irregular. RESPIRATORY: No accessory muscle use. Clear to auscultation. Breath sounds equal bilaterally. GASTROINTESTINAL: Abdomen soft. Nontender. Bowel sounds present. Nondistended. MUSCULOSKELETAL: No obvious deformities. No edema. NEUROLOGICAL: Awake and alert. No obvious cranial nerve deficits. Motor grossly within normal limits. Normal speech. PSYCHIATRIC: Appropriate mood and affect; insight and judgment normal. Pt update on day of discharge The patient was ready to go home. He had questions regarding his workout routine. He wanted to have the arm band removed. No acute complaints at this time. Hospital Course Atrial fibrillation/ Acute systolic CHF EKG with no ST elevation or depression but was significant for atrial Fibrillation with RVR. The pt presented with symptoms of SOB, cough and peripheral edema. Trop peaked at 1.44. Cardiology was consulted. Echocardiogram with EF of 25-30%; Mild to Moderate dilated left ventricle; Left atrial size moderate dilation; Mild to moderate mitral valve regurgitation; Small Pericardial effusion. Cardiac cath 2 per cardiology without obstructive coronary disease. He will continue Eliquis and digoxin. Lasix will be changed to torsemide and Lopressor will be changed to Toprol XL. Lisinopril will be held until outpt cardiology follow-up secondary to hypotension. He will follow up with cardiology in one week. Hypotension Lisinopril will be held. He will check his blood pressure regularly at home. He will follow up with cardiology as an outpt. Elevated LFTs Hepatitis profile HIV serology negative. Hepatic US negative for pathology. Resolved. Acute Kidney Injury Kidney ultrasound negative for pathology. He will continue Lasix. Lisinopril will be held. He will have a repeat BMP in 3-5 days. Pt Condition on Discharge: Stable Discharge Disposition: Discharge Home Discharge Time: > 30 minutes Discharge Instructions DIET: Follow Instructions for: Heart Healthy Diet Activities you can perform: Weight Bearing as Scar Follow up Referrals: Cardiology - 1 Week with Miguel Angel Isaac MD Cardiology - 1 Week with Miguel Angel Isaac MD PCP Follow-up - 1 Week PCP Follow-up - 1 Week with THOMAS MICHELLE MD New Orders: BASIC METABOLIC PROF - 3-5 Days New Medications: Apixaban (Eliquis) 5 Mg Tab 5 MG PO BID for Blood Clot Prevention, #60 TAB 0 Refills Metoprolol Succinate ER 24 HR (Toprol XL) 50 Mg Tab 50 MG PO BID for HEART, #60 TAB 0 Refills Torsemide (Torsemide) 20 Mg Tab 20 MG PO DAILY for Heart, #30 TAB 0 Refills Digoxin (Digoxin) 0.25 Mg Tab 0.25 MG PO DAILY for Heart, #30 TAB Potassium Chloride Microencaps (Potassium Chloride Microencaps) 20 Meq Tab 20 MEQ PO DAILY for Lasix, #30 TAB Continued Medications: Clonazepam (Clonazepam) 0.5 Mg Tab 0.5 MG PO HS, #60 TAB 0 Refills Sertraline Hcl (Zoloft) 100 Mg Tab 150 MG PO HS, TAB Discontinued Medications: Clonazepam (Clonazepam) 0.5 Mg Tab 0.5 MG PO HS, TAB Sertraline (Zoloft) 100 Mg Tab 150 MG PO DAILY, #30 TAB 0 Refills Hai Nazario DO May 28, 2017 10:38
[2017-05-28] MEDS ORDERED: APIX5TAB PO (10:40)
--- NOTE | 2017-05-28 11:56 | PD.CARD.PN ---
Subjective Subjective Remarks No complaints Objective Medications Current Medications Medications (Trade) Dose Ordered Sig/Brandie Route Start Time Stop Time Status Last Admin (KlonoPIN) 0.5 mg HS PO 05/23/17 21:00 05/27/17 20:55 (NS Flush) 2 ml UNSCH PRN IV FLUSH 05/23/17 18:00 (NS Flush) 2 ml BID IV FLUSH 05/23/17 21:00 05/28/17 09:00 (Tylenol) 650 mg Q4H PRN PO 05/23/17 18:00 05/24/17 03:47 (Zofran Inj) 4 mg Q6H PRN IVP 05/23/17 18:00 (Narcan Inj) 0.4 mg UNSCH PRN IV PUSH 05/23/17 18:00 (Sonja-Colace) 1 tab BID PO 05/23/17 21:00 05/25/17 09:55 (Milk Of Magnesia Liq) 30 ml Q12H PRN PO 05/23/17 18:00 (Senokot) 17.2 mg Q12H PRN PO 05/23/17 18:00 (Dulcolax Supp) 10 mg DAILY PRN RECTAL 05/23/17 18:00 (Lactulose Liq) 30 ml DAILY PRN PO 05/23/17 18:00 (Zoloft) 150 mg HS PO 05/23/17 22:16 05/27/17 20:55 (Morphine Inj) 1 mg Q4H PRN IV PUSH 05/24/17 08:45 (Lanoxin) 0.25 mg DAILY PO 05/26/17 09:00 05/28/17 08:58 (Prinivil) 5 mg DAILY PO 05/26/17 09:00 05/28/17 08:58 (Eliquis) 5 mg ONCE ONCE PO 05/28/17 12:00 05/28/17 12:01 05/28/17 11:50 (KCl) 20 meq DAILY PO 05/29/17 09:00 (Demadex) 20 mg DAILY PO 05/29/17 09:00 (Eliquis) 5 mg BID PO 05/28/17 21:00 UNV (Toprol Xl) 50 mg BID PO 05/28/17 21:00 UNV Vital Signs / I&O Vital Signs Date Time Temp Pulse Resp B/P (MAP) Pulse Ox O2 Delivery O2 Flow Rate FiO2 05/28/17 09:20 Room Air 05/28/17 08:41 97.4 80 18 112/84 (93) 94 05/28/17 08:00 85 05/28/17 04:59 97.7 85 20 118/69 (85) 95 05/28/17 04:06 Room Air 05/28/17 00:30 97.1 86 20 96/67 (77) 94 05/28/17 00:00 81 05/28/17 00:00 95 05/27/17 21:42 94 05/27/17 20:54 97.5 81 20 96/70 (79) 96 05/27/17 20:00 Room Air 05/27/17 19:44 101 05/27/17 16:00 97 05/27/17 16:00 97.3 79 20 95/60 (72) 94 05/27/17 13:25 95 Room Air I/O 05/27/17 05/27/17 05/27/17 05/28/17 05/28/17 05/28/17 07:00 15:00 23:00 07:00 15:00 23:00 Intake Total 400 ml 740 ml 160 ml 240 ml Output Total 500 ml 1100 ml 1 ml Balance -100 ml -360 ml 159 ml 240 ml Intake Oral 400 ml 240 ml 160 ml 240 ml IV Total 500 ml Output Urine Total 500 ml 1100 ml 1 ml # Bowel Movements 0 2 Physical Exam Alert, NAD Neck no JVD Chest Clear CV S1S2 irr irr. controlled Abd: benign Ext: trace edema Laboratory Laboratory Tests Test 05/28/17 06:26 White Blood Count 9.4 TH/MM3 Red Blood Count 4.82 MIL/MM3 Hemoglobin 15.7 GM/DL Hematocrit 45.4 % Mean Corpuscular Volume 94.0 FL Mean Corpuscular Hemoglobin 32.5 PG Mean Corpuscular Hemoglobin Concent 34.6 % Red Cell Distribution Width 14.5 % Platelet Count 195 TH/MM3 Mean Platelet Volume 8.7 FL Neutrophils (%) (Auto) 68.3 % Lymphocytes (%) (Auto) 22.4 % Monocytes (%) (Auto) 8.1 % Eosinophils (%) (Auto) 0.7 % Basophils (%) (Auto) 0.5 % Neutrophils # (Auto) 6.4 TH/MM3 Lymphocytes # (Auto) 2.1 TH/MM3 Monocytes # (Auto) 0.8 TH/MM3 Eosinophils # (Auto) 0.1 TH/MM3 Basophils # (Auto) 0.0 TH/MM3 CBC Comment DIFF FINAL Differential Comment Blood Urea Nitrogen 20 MG/DL Creatinine 1.38 MG/DL Random Glucose 89 MG/DL Total Protein 5.6 GM/DL Albumin 2.7 GM/DL Calcium Level 8.8 MG/DL Alkaline Phosphatase 79 U/L Aspartate Amino Transf (AST/SGOT) 28 U/L Alanine Aminotransferase (ALT/SGPT) 53 U/L Total Bilirubin 0.9 MG/DL Direct Bilirubin 0.2 MG/DL Sodium Level 139 MEQ/L Potassium Level 4.1 MEQ/L Chloride Level 103 MEQ/L Carbon Dioxide Level 30.5 MEQ/L Anion Gap 6 MEQ/L Estimat Glomerular Filtration Rate 52 ML/MIN Indirect Bilirubin 0.7 MG/DL Assessment and Plan Problem List: (1) Acute systolic CHF (congestive heart failure) ICD Codes: I50.21 - Acute systolic (congestive) heart failure (2) Dilated cardiomyopathy ICD Codes: I42.0 - Dilated cardiomyopathy (3) Atrial fibrillation with rapid ventricular response ICD Codes: I48.91 - Unspecified atrial fibrillation Plan: controlled (4) Elevated troponin ICD Codes: R74.8 - Abnormal levels of other serum enzymes Status: Acute Plan: no ischemia Assessment and Plan OK to DC on meds listed as above Daily weights Up Torsemide and KCL to bid if weight increases more than 3# Regular but no strenuous activity OV 10 days Miguel Angel Isaac MD May 28, 2017 11:56
[2017-05-28] MEDS ORDERED: TOPR50TA PO (11:59)
[2017-05-28] MEDS ORDERED: TORS20TA PO (11:59)
[2017-05-28] MEDS ORDERED: APIXABAN 5 MG TABLET PO ONE (12:00)
[2017-05-28 12:18] VITALS: BP 80/53; PULSE 67; RESP 18; TEMP 97.3; O2SAT 96
[2017-05-28] MEDS ORDERED: METOPROLOL SUCCINATE 50 MG EXTENDED RELEASE TAB PO SCH (21:00)
[2017-05-29] MEDS ORDERED: TORSEMIDE 20 MG TAB PO SCH (09:00)
[2017-05-29] MEDS ORDERED: POTASSIUM CHLORIDE 20 MEQ CONTROLLED RELEASE TAB PO SCH (09:00)
--- NOTE | 2017-06-01 09:31 | MA ---
cc: LIONEL GRIFFITHS DO DATE PROCEDURE Left heart catheterization, right heart catheterization, coronary angiogram, ultrasound-guided access. PREPROCEDURE DIAGNOSIS New cardiomyopathy, acute congestive heart failure, atrial fibrillation. POSTPROCEDURE DIAGNOSIS Nonischemic cardiomyopathy, compensated systolic heart failure. MEDICATIONS 1. Fentanyl 50 mcg 2. Verapamil 2.5 mg 3. Nitro 200 mcg 4. Heparin 3400 units CONTRAST USED 50 cc FLUOROSCOPY 3.7 minutes ANESTHESIA Moderate sedation 20 minutes ESTIMATED BLOOD LOSS 10 cc PROCEDURAL SUMMARY Vincent Lr is a pleasant 66-year-old male who presented with atrial fibrillation, as well as new acute systolic heart failure and an elevated troponin to [facility]. He has since been diuresed and because of this, he was recommended right and left heart catheterization. The risks, benefits and alternatives were explained to him and he consented as such. He was brought to lab and prepped in the usual sterile fashion. Right radial artery was accessed using a modified Seldinger technique and placement of a 5/6 Prydeinig sheath. This was easily aspirated and flushed. The right brachial vein was accessed using ultrasound guidance and a modified Seldinger technique and placement of a 5/6 Prydeinig slender sheath. This was easily aspirated and flushed. The Parnell-Beverly catheter was advanced to a wedge position and oxygenation saturations, as well as pressures were recorded in standard fashion upon pullback. The Parnell-Beverly catheter was removed. The JR-4 was advanced over a J-wire to the ascending aorta and across the aortic valve for measurement of left ventricular pressure. This was pulled back across the aortic valve showing no significant gradient of aortic stenosis. JR-4 was used for nonselective angiography of the right coronary artery system. This was exchanged out for a JL-3.5 which was used for selective angiography of the left coronary artery system. As I was unable to engage the right coronary artery with a JR-4, this was exchanged out for an AR mod which was used for selective angiography of the right coronary artery system. This was removed over a J-wire. A radial band was placed over the arteriotomy site for hemostasis. The brachial vein was sutured in place with a plan to remove once ACT's were in an acceptable range. 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 FINDINGS The left main is a normal sized vessel with adequate reflux. It trifurcates into an LAD, ramus and circumflex. LAD is a normal-sized vessel with minor luminal irregularities. It gives off two major diagonals with no significant disease. Ramus is a normal-size vessel with no significant disease. Left circumflex is a normal sized vessel which gives off one obtuse marginal with no significant disease. RCA is a normal-size vessel. It has a high anterior takeoff. It has no significant disease throughout. HEMODYNAMIC RESULTS RA 5. RV 22/4, RVEDP 5. PA 99/9, mean PA 14. Wedge, 9. LVEDP 3. Cardiac output 5.6. Cardiac index 2.8. IMPRESSIONS 1. New cardiomyopathy. 2. Compensated systolic heart failure 3. Atrial fibrillation RECOMMENDATIONS 1. Mr. Lr appears to have a nonischemic cardiomyopathy possibly due to tachyarrhythmia with his atrial fibrillation. 2. He will continue on Metoprolol therapy to help control his heart rate, but also from a heart failure standpoint. He will also be placed on ARLET inhibitor therapy. 3. It appears that he has been diuresed well and his Lasix will be changed to oral therapy. 4. He will be watched overnight and if stable in the morning, be restarted on his Eliquis with a plan to discharge and follow up with Dr. Isaac in the office. Thank you for allowing me to see Vincent Lr. If there are any questions, please do not hesitate to call. Lionel Griffiths DO VGP/DJL /11:00 PM /9:18 AM
== END 2017-05-28 13:28 | disposition home or self-care (01) | DRG 280 ==
LOC: NEPE 14:27 → NEDA 17:48 → N04B 19:39
PROVIDERS: ADMIT Hospitalist; ATTEND Hospitalist
PROC: B2111ZZ Fluoroscopy of Multiple Coronary Arteries using Low Osmolar Contrast (ICD-10-PCS; 2017-05-27)
PROC: 4A023N8 Measurement of Cardiac Sampling and Pressure, Bilateral, Percutaneous Approach (ICD-10-PCS; principal; 2017-05-27 09:45)
DX: I48.91 Unspecified atrial fibrillation (principal); I50.21 Acute systolic (congestive) heart failure; I21.A1 Myocardial infarction type 2; N17.9 Acute kidney failure, unspecified; I31.3 Pericardial effusion (noninflammatory); I42.0 Dilated cardiomyopathy; I95.9 Hypotension, unspecified; I34.0 Nonrheumatic mitral (valve) insufficiency; K75.9 Inflammatory liver disease, unspecified; F32.9 Major depressive disorder, single episode, unspecified; F41.9 Anxiety disorder, unspecified; K21.9 Gastro-esophageal reflux disease without esophagitis; Z23 Encounter for immunization; Z82.49 Family history of ischemic heart disease and other diseases of the circulatory system
CPT/HCPCS: 71045; 76700; 80048; 80053; 80061; 80074; 80076; 80307; 82272; 82550; 82607; 83036; 83735; 83880; 84439; 84443; 84484; 85025; 85027; 85610; 85730; 86703; 90686; 93005; 93306; 93460; 96374; 96375; C1769; C1893; J1160; J1644; J1650; J1940; J2250; J3010; J7050; Q2038; Q9967

== ENCOUNTER 2017-09-30 11:28 | Day surgery (SDC) | payer BC ==
[~2017-09-30] VITALS: Ht 177.8 cm; Wt 84.3 kg
[~2017-09-30 11:28] MED LIST changes: +APIX5TAB PO; +DIGO0.25 PO; +POTA20TA5 PO; +TOPR50TA PO; +TORS20TA PO
[2017-09-30] MEDS ORDERED: LORazepam 1 MG TAB SL SCH (12:00)
[2017-09-30] MEDS: SODIUM CHLORID 0.9% 500 ML INJ 500 ML IV SCH (12:00)
[2017-09-30] MEDS ORDERED: CHLORHEXIDINE GLUCONATE 2 % 1 PACK (2 CLOTHS) TOPICAL PRN (12:15)
[2017-09-30] MEDS ORDERED: SODIUM CHLORID 0.9% 500 ML IV PRN (12:15)
[2017-09-30] MEDS ORDERED: POVIDONE IODINE 5% (ANTISEPSIS KIT) 4 APPLICATIONS EACH NARE PRN (12:15)
[2017-09-30] MEDS ORDERED: LACTATED RINGER'S 1000 ML IV PRN (12:15)
[2017-09-30] MEDS ORDERED: METOPROLOL TARTRATE 25 MG TAB PO PRN (12:15)
[2017-09-30 12:31] VITALS: BP 101/66; PULSE 74; RESP 18; TEMP 97.7; O2SAT 96
[2017-09-30] MEDS ORDERED: SERT-129 PO (12:42)
[2017-09-30] MEDS ORDERED: SACU1TAB PO (12:42)
[2017-09-30 13:05] LABS: INTERNATIONAL NORMALIZED RATIO 1.1 RATIO; PROTHROMBIN TIME - PATIENT 11.1 SEC (9.8-11.6)
[2017-09-30 13:06] LABS: AUTOMATED NEUTROPHIL # 3.2 TH/MM3 (1.8-7.7); BASOPHIL % 0.6 % (0.0-2.0); EOSINOPHIL % 0.8 % (0.0-4.0); HEMATOCRIT 40.2 % (39.0-51.0); HEMOGLOBIN 13.6 GM/DL (13.0-17.0); LYMPHOCYTE # 1.8 TH/MM3 (1.0-4.8); MEAN CELL VOLUME 95.8 FL (80.0-100.0); MEAN CORPUSCULAR HEMOGLOBIN 32.5 PG (27.0-34.0); MEAN CORPUSCULAR HGB CONC 33.9 % (32.0-36.0); MEAN PLATELET VOLUME 8.9 FL (7.0-11.0); MONO % 8.1 % (0.0-8.0); MONOCYTE # 0.4 TH/MM3 (0-0.9); NEUT % 57.5 % (16.0-70.0); PLATELET COUNT 183 TH/MM3 (150-450); RED BLOOD COUNT 4.19 MIL/MM3 (4.50-5.90); RED CELL DISTRIBUTION WIDTH 13.8 % (11.6-17.2); WHITE BLOOD COUNT 5.5 TH/MM3 (4.0-11.0)
[2017-09-30 13:07] LABS: BICARBONATE 26.5 MEQ/L (21.0-32.0); CREATININE 1.59 MG/DL (0.60-1.30)
[2017-09-30] MEDS ORDERED: HEPARIN-D5W 25,000 U/250 ML 250 ML ONE (16:30)
[2017-09-30] MEDS ORDERED: PROTAMINE SULFATE 50 MG/5 ML VIAL ONE (16:30)
[2017-09-30] MEDS ORDERED: ISOPROTERENOL INJ PREMIX 50 ML IV ONE ×2 (16:30→17:00)
[2017-09-30] MEDS ORDERED: LEVOFLOXACIN 500 MG PREMIX INJ 100 ML IV ONE (16:38)
[2017-09-30] MEDS ORDERED: HEPARIN-NS/PF INJ 1,500 ML ONE (16:38)
[2017-09-30] MEDS ORDERED: MIDAZOLAM HCL 2 MG/2 ML VIAL ONE (19:00)
[2017-09-30] MEDS ORDERED: oxyCODONE/ACETAMINOPHEN 5 MG/325 MG TAB PO PRN ×2 (19:30)
[2017-09-30] MEDS ORDERED: ATROPINE SULFATE 1 MG/ML VIAL IV PUSH PRN (19:30)
[2017-09-30] MEDS ORDERED: SACUBITRIL/VALSARTAN 24 MG-26 MG TAB PO SCH (19:30)
[2017-09-30] MEDS ORDERED: SODIUM CHLOR 0.9% 250 ML INJ 250 ML IV PRN (19:30)
[2017-09-30] MEDS ORDERED: LORazepam 2 MG/ML VIAL IV PUSH PRN (19:30)
[2017-09-30] MEDS ORDERED: BACITRACIN OINT 0.9 GM PKT TOP ONE (19:30)
[2017-09-30] MEDS ORDERED: ONDANSETRON ODT 4 MG TAB PO PRN (19:30)
[2017-09-30] MEDS ORDERED: LIDOCAINE HCL 1% 50 ML VIAL INFIL PRN (19:30)
--- NOTE | 2017-09-30 19:40 | CATHPROC ---
Patient Name: NAHID BARRIENTOS Study #: [id number] Initial MD: Sandra Garay Date of : 1950 Study Date: 09/30/2017 Cardiac Catheterization Report 09/30/2017 7:40:34 PM Financial #: [id number] 1 of 10 Patient Name: NAHID BARRIENTOS Study #: [id number] Initial MD: Sandra Garay Date of : 1950 Study Date: 09/30/2017 Entire Case Report Patient Information Patient Name NAHID BARRIENTOS Date of 1950 Age 66 years Financial # [id number] Gender M AlternateID Lab Number 2 Room Number DC10 Height (in) 70.0 Height (cm) 177.8 BSA 2.02 Weight (lbs) 184.8 Weight (kg) 84.0 Patient Address/Phone Number Home Address [facility] Home Phone Number [phone] [facility] [address] [facility] [id number] Study Information Study Number Admission Scheduled Start Study Start [id number] Sep 30 2017 11:28AM 09/30/2017 Sep 30 2017 4:47PM [place] [facility] Electrophysiology Study Admit Source Facility Department Other [facility] - Interior Design Professor Physician and Clinical Staff Initial Sandra Olivas Veterinary Dentist Mariano Arias,RT(R) Veterinary Dentist Sarah Ordaz RN Other Anesthesia, EQUIPMENT OPERATOR/LABORER/SUPERVISOR Recorder Cynthia Fong RN Scrub Cande Moe,RT(R) TECH2 Procedures Performed Procedure Location (Site) Vessel Name Ablation Procedure ICE CATHETER INSERT RA Atruim RF Ablation Isthmus Other Equipment Time Clock Repairer Description Size Mfg Part Number Used/Scraped NEEDLE, TRANSSEPTAL NR 98 [id number] 16:52 [facility] Used C1 *[id number] BIOSENSE HIRSCH CATHETER, CELSIUS DS, 8MM, F [id number] 18:27 FR 7 Used INC. TYPE QUAD *[id number] 09/30/2017 7:40:34 PM Financial #: [id number] 2 of 10 Patient Name: NAHID BARRIENTOS Study #: [id number] Initial MD: Sandra Garay Date of : 1950 Study Date: 09/30/2017 [employer]/ EP [id number] 16:52 KIT, TRANSDUCER / AFIB Used PACER *[id number] CATHETER, TACTICATH ABLAT BUNDLE 16:52 [facility] Used 65 BUNDLE *[id number]- BUNDLE [id number] CATHETER, FR7 OPTIMA SPIRAL 16:52 [facility] FR7 *[id number]- Used BUNDLE BUNDLE [id number] 16:52 [facility] CATHETER, JSN, QUAD BUNDLE FR 5 *[id number]- Used BUNDLE [id number] 16:52 [facility] CATHETER, JSN, QUAD BUNDLE FR 5 *8148066- Used BUNDLE [id number] SET, COOL POINT TUBING 16:52 [facility] *9354878- Used BUNDLE BUNDLE SHEATH, FR8.5 STEERABLE SM 16:52 [facility] 71CM [id number] Used 71CM BUNDLE [id number] 19:17 C[employer] MEDICAL VASCADE, FR5 CLOSURE SYSTEM FR 5 Used *[id number] 19:17 C[employer] VASCADE, FR6 CLOSURE SYSTEM FR 6\\7 Used *[id number] 19:17 C[employer] MEDICAL VASCADE, FR6 CLOSURE SYSTEM FR 6\\7 Used *[id number] [id number] 19:17 C[employer] MEDICAL VASCADE, FR6 CLOSURE SYSTEM FR 6\\7 Used *[id number] 19:17 CARD[employer]A MEDICAL VASCADE, FR6 CLOSURE SYSTEM FR 6\\7 Used *[id number] COVER, TRANSDUCER CABLE 612-113 16:52 [employer] Used ACUNAV *[id number] [id number] 16:52 CORDIS/PACER SHEATH, FR10 SHOBHA 11CM FR 10 Used *[id number] 16:52 CORDIS/PACER SHEATH, FR9 SHOBHA 11CM FR 9 [id number] Used [id number] 16:52 [employer] BLANKET,WARM AIR CCL * Used *[id number] [id number] 16:52 [employer] PACK, CCL CUSTOM * Used *5334502 16:52 MEDLINE PACER [place], LIMB * 2530 *[id number] Used 18:17 [employer] SHEATH, FR5.5 PRELUDE 11CM FR 5 [id number] Used [id number] 16:52 NAMIC TUBING, HIGH PRESSURE 48" 48" Used *[id number] 16:52 NAMIC TUBING, HIGH PRESSURE 48" 48" Used *4270159 [id number] 16:52 [facility] MEDICAL ELECTRODE KIT, BASILIO X SURFACE * Used *1995422 960648 16:52 [facility] MEDICAL SHEATH, EPS, FR6 FAST CATH FR 6 Used *[id number] 16:52 [facility] MEDICAL SHEATH, EPS, FR7 FAST CATH FR 7 [id number] Used 17:33 [facility] MEDICAL SHEATH, EPS, FR7 FAST CATH FR [address] [id number] Used 17:35 [facility] MEDICAL SHEATH, EPS, FR7 FAST CATH FR 7 [id number] Used 914642 16:52 [facility] MEDICAL SHEATH, EPS, FR8 FAST CATH FR 8 Used *[id number] 09/30/2017 7:40:34 PM Financial #: [id number] Patient Name: NAHID BARRIENTOS Study #: [id number] Initial MD: Sandra Garay Date of : 1950 Study Date: 09/30/[address] [id number] 18:50 [facility] MED[employer] SHEATH, EPS, FR8 SRO 60CM FR 8 Used *[id number] CATHETER, ACUNAV FR10 ICE [id number] 18:25 GENEVIEVE FR 10 Used (GENEVIEVE) *[id number] [facility] PAD, ELECTROSURGICAL 16:52 * [id number] *[id number] Used SURGICAL GROUNDING (BLUE) Insurance Information Insurance Payor Private Health Insurance Third Libertarian Third Libertarian Number BC [facility] BCNWB History: Allergies Allergy Reaction No Known Allergies History: Risk Factors Hypertension Dyslipidemia Previous Heart Failure Yes Yes Yes Labs Hgb (g/dl) Hct (%) WBC (l/cumm) Platelets (thousands) 11.60-17.00 35.00-51.00 4.00-11.00 150.00-450.00 13.6 40.2 5.5 183 Glucose (mg/dl) BUN (mg/dl) Creatinine (mg/dl) BUN:Creatinine (1:x) 74.00-106.00 7.00-18.00 0.50-1.30 10.00-20.00 98 36 1.5 24 Na (meq/l) K (meq/l) 136.00-145.00 3.50-5.10 142 4.2 INR (PTT:PT) 0.90-1.10 1.1 Medication Medication Total Dose (Bolus/Oral) Medication Total Dosage/Unit 1% XYLOCAINE 40 mL HEPARIN 8000 units PROTAMINE 20 mg 09/30/2017 7:40:34 PM Financial #: [id number] Patient Name: NAHID BARRIENTOS Study #: [id number] Initial MD: Sandra Garay Date of : 1950 Study Date: 09/30/2017 Medications (Bolus/Oral) Medication Time Given Dosage/Unit Administered By Reason 1% XYLOCAINE 09/30/2017 6:17:41 PM 20 mL Sandra Garay 20 mL 1% XYLOCAINE given in lab by Sandra Garay in Left Groin via Subcutaneous. 1% XYLOCAINE 09/30/2017 6:21:49 PM 20 mL Sandra Garay 20 mL 1% XYLOCAINE given in lab by Sandra Garay in Right Groin via Subcutaneous. HEPARIN 09/30/2017 6:30:27 PM 5000 units Anesthesia, EQUIPMENT OPERATOR/LABORER/SUPERVISOR As per physicians ve rbal order 5000 units HEPARIN given in lab by Anesthesia, EQUIPMENT OPERATOR/LABORER/SUPERVISOR via Peripheral IV. Ordered by Sandra Garay. Reas on: As per physicians verbal order. HEPARIN 09/30/2017 6:52:46 PM 3000 units Anesthesia, EQUIPMENT OPERATOR/LABORER/SUPERVISOR As per physicians ve rbal order 3000 units HEPARIN given in lab by Anesthesia, EQUIPMENT OPERATOR/LABORER/SUPERVISOR via Peripheral IV. Ordered by Sandra Garay. Reas on: As per physicians verbal order. PROTAMINE 09/30/2017 7:27:10 PM 20 mg Anesthesia, EQUIPMENT OPERATOR/LABORER/SUPERVISOR As per physicians verb al order 20 mg PROTAMINE given in lab by Anesthesia, EQUIPMENT OPERATOR/LABORER/SUPERVISOR via Peripheral IV. Ordered by Sandra Garay. Reason: As per physicians verbal order. Medication (Drip) Medication Time Given Dosage/Unit Concentration/Unit Diluent (ml) Solution ISUPREL 09/30/2017 6:58:30 PM 5 mcg/min 1 mg 250 NaCl .9 5 mcg/min ISUPREL given in lab by Anesthesia, EQUIPMENT OPERATOR/LABORER/SUPERVISOR via Peripheral IV. Pump/Drip Flow = 75 ml/hr using NaCl .9 with a concentration of 1 mg in 250 ml. Ordered by Sandra Garay. Reason: As per physicians verbal order. LEVAQUIN 09/30/2017 5:52:09 PM 100 mL/hr 500 100 NaCl .9 100 mL/hr LEVAQUIN given in lab by Anesthesia, EQUIPMENT OPERATOR/LABORER/SUPERVISOR via Peripheral IV. Pump/Drip Flow = 0 ml/hr using NaCl .9 with a concentration of 500 in 100 ml. Ordered by Sandra Garay. Reason: As per physicians verbal order. for ordoñez insertion 09/30/2017 7:40:34 PM Financial #: [id number] Patient Name: NAHID BARRIENTOS Study #: [id number] Initial MD: Sandra Garay Date of : 1950 Study Date: 09/30/2017 Initial Case Assessment Cardiovascular HR NIBP 72 128/78 Edema Present Skin color Skin None Normal Warm Dry Circulatory - Right Pulses Dorsalis Pedis 1 Scale (0,1,2,3,4,d) Circulatory - Left Pulses Dorsalis Pedis 1 Scale (0,1,2,3,4,d) Circulatory - Lower Extremities Color Lower Right Color Lower Left Normal Normal Neurological State Oriented to time-place- Alert Moves all extremities person Respiration - General Respiration Rate SpO2 (%) (B/min) 16 99 09/30/2017 7:40:34 PM Financial #: [id number] Patient Name: NAHID BARRIENTOS Study #: [id number] Initial MD: Sandra Garay Date of : 1950 Study Date: 09/30/2017 Final Case Assessment Cardiovascular HR Rhythm NIBP 53 sr 112/48 Edema Present Skin color Skin None Normal Warm Dry Circulatory - Right Pulses Dorsalis Pedis 2 Scale (0,1,2,3,4,d) Circulatory - Left Pulses Dorsalis Pedis 2 Scale (0,1,2,3,4,d) Circulatory - Lower Extremities Color Lower Right Color Lower Left Normal Normal Neurological State Unresponsive Comment: intubated at this time Respiration - General SpO2 (%) 100 Respiration - Ventilator Type Intubation Type ET(oral) Chronological Log Time Study Chronological Log 17:08:26 Patient arrived via Bed. 17:08:27 Patient Name, D.O.B, / Armband Verified By R.N. 17:08:27 Consent signed by the physician and the patient and verified by the Interior Design Professor staff. 17:08:28 Pre-op and post- op instructions given; patient acknowledges understanding of instructions. 17:08:29 Verbal Stimulation=2 Physical Stimulation=2 Airway=2 Respiration=2 TOTAL=8. (0=absent, 1=li mited, 2=present) 17:08:36 Patient has been NPO for More than 6Hrs. 09/30/2017 7:40:34 PM Financial #: [id number] Patient Name: NAHID BARRIENTOS Study #: [id number] Initial MD: Sandra Garay Date of : 1950 Study Date: 09/30/2017 17:08:37 Skin Breakdown- none per pt 17:08:39 Patient Warmer Placed on the Table. 17:08:39 Disposable Defibrillator Pads Placed On Patient. 17:08:40 Lacy Prominences Protected 17:08:42 A # 20 IV was noted in the Forearm (right). Grade = 0 0.9% NaCl @ KVO 17:08:43 A # 20 IV was noted in the Antecubital (left). Grade = 0 0.9% NaCl @ KVO 17:08:44 History and physical on the chart. Assessment: Initial Case, HR=72 BPM, XZMC=985/78 mmhg, Edema=None, Color=Normal, Skin = Warm, D ry Right Pulses: Juice Ped=1 Left Pulses: Juice Ped=1 17:24:31 Lower Right Extremities: Color=Normal Lower Left Extremities: Color=Normal Neurological: State=Alert, Ox3, GRAY Respiration: Resp=16 B/min, SpO2=99 % 17:26:12 Table restraints applied according to hospital policy 17:41:59 Anesthesia at bedside. Assumes care of patient. Amy 17:44:50 Intubated for procedure by anesthesia A #16fr ordoñez catheter was inserted aseptically by MM with clear, yellow urine returns. Ordoñez s ecured to thigh and bag 17:51:55 hung at side of table. 100 mL/hr LEVAQUIN given in lab by Anesthesia, EQUIPMENT OPERATOR/LABORER/SUPERVISOR via Peripheral IV. Pump/Drip Flow = 0 ml/hr using NaCl .9 with 17:52:09 a concentration of 500 in 100 ml. Ordered by Sandra Garay. Reason: As per physicians verbal or devika. for ordoñez insertion 17:53:32 Bilateral groins prepped with 2% chlorhexidine, and draped after a 3 minute waiting time. 18:04:43 MD paged 18:11:16 MD arrived. Time Out. Correct patient, procedure, procedure equipment, site and side verified with physicia n present. Time 18:14:05 concurred by MD, individual staff and EQUIPMENT OPERATOR/LABORER/SUPERVISOR. Time Out #2 - Consents verified, patient in correct position, all results are labled and displa yed, safety precautions 18:14:36 taken, antibiotics administered. Time out concurred by MD, individual staff and EQUIPMENT OPERATOR/LABORER/SUPERVISOR in procedu re 18:14:37 Case Start 18:14:42 NORBERTO in progress 18:17:16 Norberto complete. 18:17:41 20 mL 1% XYLOCAINE given in lab by Sandra Garay in Left Groin via Subcutaneous. 18:18:18 Vascular access was obtained in the Fem Vein (left). 18:18:22 Vascular access was obtained in the Fem Vein (left). 18:18:28 Vascular access was obtained in the Fem Vein (left). 18:18:34 Vascular access was obtained in the Fem Art (left). A SHEATH, FR5.5 PRELUDE 11CM FR 5 was advanced into the Fem Art (left) using the Modified Seldi nger technique. 18:18:49 0.9ns pressure bag connected. 18:20:59 A SHEATH, EPS, FR6 FAST CATH FR 6 was advanced into the Fem Vein (left) using the Modified Seldinger technique. 18:21:06 A SHEATH, EPS, FR7 FAST CATH FR 7 was advanced into the Fem Vein (left) using the Modified Seldinger technique. 18:21:10 A SHEATH, FR10 SHOBHA 11CM FR 10 was advanced into the Fem Vein (left) using the Modified S eldinger technique. 18:21:49 20 mL 1% XYLOCAINE given in lab by Sandra Garay in Right Groin via Subcutaneous. 09/30/2017 7:40:34 PM Financial #: [id number] 8 of 10 Patient Name: NAHID BARRIENTOS Study #: [id number] Initial MD: Sandra Garay Date of : 1950 Study Date: 09/30/2017 18:22:06 Vascular access was obtained in the Fem Vein (right). 18:22:20 A SHEATH, EPS, FR8 FAST CATH FR 8 was advanced into the Fem Vein (right) using the Modified Seldinger technique. 18:23:27 Starting temp 36.3. A CATHETER, JSN, QUAD BUNDLE FR 5 was advanced vis Fem Vein (left) and placed in the CS. Placem ent was visually 18:23:57 confirmed under fluoroscopy. A CATHETER, JSN, QUAD BUNDLE FR 5 was advanced vis Fem Vein (left) and placed in the HIS. Place ment was 18:24:13 visually confirmed under fluoroscopy. A SHEATH, FR8.5 STEERABLE SM 71CM BUNDLE 71CM was exchanged in the Fem Vein (right). This was n ecessary in 18:27:05 order for catheter support. 18:28:00 CATHETER, ACUNAV FR10 ICE (GoGarden) FR 10 Was Postioned. 5000 units HEPARIN given in lab by Anesthesia, EQUIPMENT OPERATOR/LABORER/SUPERVISOR via Peripheral IV. Ordered by Sandra Garay . Reason: As per 18:30:27 physicians verbal order. A CATHETER, CELSIUS DS, 8MM, F TYPE QUAD FR 7 was advanced vis Fem Vein (right) and placed in t he Isthmus. 18:31:46 Placement was visually confirmed under fluoroscopy. 18:32:19 RF Ablation of the Isthmus with a CATHETER, CELSIUS DS, 8MM, F TYPE QUAD FR 7. 18:42:26 Activated Clotting Time Drawn 18:48:07 ACT (Normal Range 90-180) = 225 18:51:21 Ablation catheter was removed A SHEATH, EPS, FR8 SRO 60CM FR 8 was exchanged in the Fem Vein (right). This was necessary in o rder for catheter 18:51:32 support. 3000 units HEPARIN given in lab by Anesthesia, EQUIPMENT OPERATOR/LABORER/SUPERVISOR via Peripheral IV. Ordered by Sandra Garay . Reason: As per 18:52:46 physicians verbal order. A CATHETER, CELSIUS DS, 8MM, F TYPE QUAD FR 7 was advanced vis Fem Vein (right) and placed in t he Isthmus. 18:54:00 Placement was visually confirmed under fluoroscopy. 18:57:11 Activated Clotting Time Drawn 18:57:14 Ablation catheter was removed 5 mcg/min ISUPREL given in lab by Anesthesia, EQUIPMENT OPERATOR/LABORER/SUPERVISOR via Peripheral IV. Pump/Drip Flow = 75 ml/hr using NaCl .9 with 18:58:30 a concentration of 1 mg in 250 ml. Ordered by Sandra Garay. Reason: As per physicians verbal o rder. 19:02:00 ACT (Normal Range 90-180) = 226 19:09:43 Isuprel off 19:11:43 All catheter(s) removed without difficulty. A SHEATH, FR9 SHOBHA 11CM FR 9 was exchanged in the Fem Vein (right). This was necessary in ord er to minimize 19:12:53 site leakage. 19:13:18 End of case temp 36.3. Assessment: Final Case, HR=53 BPM, Rhythm=sr, IMJP=527/48 mmhg, Edema=None, Color=Normal, Skin = Warm, Dry Right Pulses: Juice Ped=2 Left Pulses: Juice Ped=2 19:14:20 Lower Right Extremities: Color=Normal Lower Left Extremities: Color=Normal Neurological: State=Unresponsive, Comment=intubated at this time Respiration: EjT4=130 %, Type=ET(Oral) 19:17:36 VASCADE, FR5 CLOSURE SYSTEM FR 5 placement in the Fem Art (left) 19:17:59 VASCADE, FR6 CLOSURE SYSTEM FR 6\\7 placement in the Fem Vein (left) 19:18:44 VASCADE, FR6 CLOSURE SYSTEM FR 6\\7 placement in the Fem Vein (left) 19:19:27 VASCADE, FR6 CLOSURE SYSTEM FR 6\\7 placement in the Fem Vein (left) 19:20:30 VASCADE, FR6 CLOSURE SYSTEM FR 6\\7 placement in the Fem Vein (right) 09/30/2017 7:40:34 PM Financial #: [id number] 9 of 10 Patient Name: NAHID BARRIENTOS Study #: [id number] Initial MD: Sandra Garay Date of : 1950 Study Date: 09/30/2017 19:22:33 PACU called. Spoke to Jl 19:25:10 Case End (Physician broke scrub) 19:25:21 No case complications noted. 19:25:41 Bedside Report will be given. 19:25:42 Implantable Device card placed in patient's chart. 19:25:49 Defibrillator and ground pads removed. Skin intact. 19:26:58 Arterial vascade failed. Pressure held by . Dr Garay aware orderd for protamine given to EQUIPMENT OPERATOR/LABORER/SUPERVISOR. 20 mg PROTAMINE given in lab by Anesthesia, EQUIPMENT OPERATOR/LABORER/SUPERVISOR via Peripheral IV. Ordered by Sandra Garay. Reason: As per 19:27:10 physicians verbal order. 19:35:28 Activated Clotting Time Drawn 19:37:39 ACT (Normal Range 90-180) = 156 19:39:23 Sterile dressing applied to sites. Sites wnl. 19:39:29 Ablation procedure performed: Aflutter. 19:39:35 EP Procedure was performed. 19:45:51 Patient moved to [facility] End Study - Contrast Media Used In Study Contrast Total Opened (mL) Total Used (mL) Total Wasted (mL) Unspecified 0 0 0 End Study - Maximum Contrast Load Max Contrast Load (mL) 280.0 End Study - Radiation Exposure Fluoro Time (minutes) 8.0 End Study - Sheaths Sheaths Pulled By Sheath Hold Time (min) Cande Moe End Study - Patient Disposition Complications Transferred To Interventional Outcome No Telemetry Bed successful 09/30/2017 7:40:34 PM Financial #: [id number]
[2017-09-30 20:00] VITALS: BP 93/56; PULSE 59; RESP 16; TEMP 97.5; O2SAT 97
[2017-09-30] MEDS ORDERED: DO NOT ADM ANY ANTICOAGULANT DRUGS PRN (20:15)
[2017-09-30] MEDS ORDERED: LEVOFLOXACIN 500 MG PREMIX INJ 100 ML IV SCH (20:15)
[2017-09-30] MEDS ORDERED: clonazePAM 0.5 MG TAB PO SCH (21:00)
[2017-09-30] MEDS ORDERED: METOPROLOL SUCCINATE 50 MG EXTENDED RELEASE TAB PO SCH (21:00)
[2017-09-30] MEDS: APIXABAN 5 MG TABLET PO SCH (22:11)
[2017-09-30 23:00] VITALS: BP 95/59; PULSE 66; RESP 16; TEMP 97.6; O2SAT 98
[2017-10-01 03:00] VITALS: BP 99/59; PULSE 54; RESP 16; TEMP 98.1; O2SAT 98
[2017-10-01] MEDS: SODIUM CHLORID 0.9% 500 ML INJ 500 ML IV SCH (04:40)
[2017-10-01 05:08] LABS: INTERNATIONAL NORMALIZED RATIO 1.2 RATIO; PROTHROMBIN TIME - PATIENT 11.7 SEC (9.8-11.6)
[2017-10-01 07:59] VITALS: BP 102/60; PULSE 47; RESP 16; TEMP 97.4; O2SAT 98
--- NOTE | 2017-10-01 08:13 | PD.CARD.PN ---
Subjective Subjective Remarks Feels okay. Objective Medications Current Medications Medications (Trade) Dose Ordered Sig/Brandie Route Start Time Stop Time Status Last Admin Sodium Chloride 500 ml @ 30 mls/hr [id number] IV 09/30/17 12:00 10/01/17 04:40 (Ativan) 1 mg ENDODONTIC ASSISTANT SL 09/30/17 12:00 10/03/17 11:59 Lactated Ringer's 1,000 ml @ 30 mls/hr Q24H PRN IV 09/30/17 12:15 10/03/17 12:14 Sodium Chloride 500 ml @ 30 mls/hr [id number] PRN IV 09/30/17 12:15 10/03/17 12:14 (Lopressor) 25 mg ENDODONTIC ASSISTANT PRN PO 09/30/17 12:15 10/03/17 12:14 (Betadine 5% Antisepsis Kit) 1 applic ENDODONTIC ASSISTANT PRN EACH NARE 09/30/17 12:15 10/03/17 12:14 (Chlorhexidine 2% Cloth) 3 pack ENDODONTIC ASSISTANT PRN TOPICAL 09/30/17 12:15 10/03/17 12:14 (Percocet 5-325 Mg) 1 tab Q4H PRN PO 09/30/17 19:30 (Percocet 5-325 Mg) 2 tab Q4H PRN PO 09/30/17 19:30 (Ativan Inj) 0.5 mg UNSCH PRN IV PUSH 09/30/17 19:30 10/01/17 19:29 (Atropine Inj) 0.5 mg UNSCH PRN IV PUSH 09/30/17 19:30 Sodium Chloride 250 ml @ 500 mls/hr ONCE PRN IV 09/30/17 19:30 10/01/17 19:29 (Zofran Odt) 4 mg Q4H PRN PO 09/30/17 19:30 (Xylocaine 1% Inj (50 ml)) 10 ml UNSCH PRN INFIL 09/30/17 19:30 10/01/17 19:29 (Eliquis) 5 mg BID PO 09/30/17 21:00 09/30/17 22:11 (KlonoPIN) 0.5 mg HS PO 09/30/17 21:00 09/30/17 22:11 (Toprol Xl) 50 mg BID PO 09/30/17 21:00 (Entresto 24-26 Mg) 1 tab DAILY PO 09/30/17 19:30 (Zoloft) 100 mg DAILY PO 10/01/17 09:00 (Demadex) 20 mg DAILY PO 10/01/17 09:00 ([facility] Nursing Information) ALL NURSING DEPARTME... UNSCH PRN .XX 09/30/17 20:15 10/01/17 20:14 Levofloxacin/ Dextrose 100 ml @ 100 mls/hr ENDODONTIC ASSISTANT IV 09/30/17 20:15 10/03/17 20:14 Vital Signs / I&O Vital Signs Date Time Temp Pulse Resp B/P (MAP) Pulse Ox O2 Delivery O2 Flow Rate FiO2 10/01/17 07:59 97.4 47 16 102/60 (74) 98 10/01/17 03:00 98.1 54 16 99/59 (72) 98 09/30/17 23:00 97.6 66 16 95/59 (71) 98 09/30/17 20:40 97.4 58 16 92/54 (67) 100 Nasal Cannula 2 09/30/17 20:30 58 15 91/54 (66) 98 Nasal Cannula 2 09/30/17 20:15 57 16 90/53 (65) 98 Nasal Cannula 2 09/30/17 20:00 59 14 95/54 (68) 99 Nasal Cannula 2 09/30/17 20:00 97.5 59 16 93/56 (68) 97 09/30/17 19:50 97.6 59 17 104/58 (73) 100 Nasal Cannula 2 09/30/17 12:31 97.7 74 18 101/66 (78) 96 I/O 09/30/17 09/30/17 09/30/17 10/01/17 10/01/17 10/01/17 06:59 14:59 22:59 06:59 14:59 22:59 Intake Total 980 ml Output Total 450 ml 825 ml Balance -450 ml 155 ml Intake Oral 980 ml Output Urine Total 450 ml 825 ml Bladder Scan Volume Amount 496 ml Physical Exam GENERAL: Well-nourished, well-developed patient. SKIN: Warm and dry. Groin site soft without bruising or bleeding. HEAD: Normocephalic. EYES: No scleral icterus. No injection or drainage. NECK: Supple, trachea midline. No JVD or lymphadenopathy. CARDIOVASCULAR: Regular rate and rhythm without murmurs, gallops, or rubs. RESPIRATORY: Breath sounds equal bilaterally. No accessory muscle use. GASTROINTESTINAL: Abdomen soft, non-tender, nondistended. EXTREMITIES: No cyanosis, or edema. NEUROLOGICAL: Awake, alert, and oriented x 3. Non-focal. Laboratory Laboratory Tests Test 09/30/17 12:10 10/01/17 04:05 White Blood Count 5.5 TH/MM3 Red Blood Count 4.19 MIL/MM3 Hemoglobin 13.6 GM/DL Hematocrit 40.2 % Mean Corpuscular Volume 95.8 FL Mean Corpuscular Hemoglobin 32.5 PG Mean Corpuscular Hemoglobin Concent 33.9 % Red Cell Distribution Width 13.8 % Platelet Count 183 TH/MM3 Mean Platelet Volume 8.9 FL Neutrophils (%) (Auto) 57.5 % Lymphocytes (%) (Auto) 33.0 % Monocytes (%) (Auto) 8.1 % Eosinophils (%) (Auto) 0.8 % Basophils (%) (Auto) 0.6 % Neutrophils # (Auto) 3.2 TH/MM3 Lymphocytes # (Auto) 1.8 TH/MM3 Monocytes # (Auto) 0.4 TH/MM3 Eosinophils # (Auto) 0.0 TH/MM3 Basophils # (Auto) 0.0 TH/MM3 CBC Comment DIFF FINAL Differential Comment Prothrombin Time 11.1 SEC 11.7 SEC Prothromb Time International Ratio 1.1 RATIO 1.2 RATIO Activated Partial Thromboplast Time 27.5 SEC 26.5 SEC Blood Urea Nitrogen 36 MG/DL Creatinine 1.59 MG/DL Random Glucose 98 MG/DL Calcium Level 9.0 MG/DL Sodium Level 142 MEQ/L Potassium Level 4.2 MEQ/L Chloride Level 106 MEQ/L Carbon Dioxide Level 26.5 MEQ/L Anion Gap 10 MEQ/L Estimat Glomerular Filtration Rate 44 ML/MIN Assessment and Plan Problem List: (1) Atrial fibrillation with rapid ventricular response ICD Codes: I48.91 - Unspecified atrial fibrillation Plan: Normal sinus rhythm on telemetry status post atrial fibrillation ablation. (2) S/P ablation of atrial fibrillation ICD Codes: Z98.890 - Other specified postprocedural states; Z86.79 - Personal history of other diseases of the circulatory system Plan: Continue Eliquis. Discharge home. Follow-up with Dr. Garay in 3 weeks per my discussion with him. Minerva Rey Oct 01, 2017 08:13
[2017-10-01] MEDS ORDERED: SERTRALINE HCL 100 MG TAB PO SCH (09:00)
[2017-10-01] MEDS ORDERED: TORSEMIDE 20 MG TAB PO SCH (09:00)
[2017-10-01] MEDS: APIXABAN 5 MG TABLET PO SCH (10:13)
--- NOTE | 2017-10-01 15:57 | EKG ---
Date Performed: 09/30/2017 Time Performed: 12:29:10 PTAGE: 66 years EKG: Atrial fibrillation. Inferior T wave changes are nonspecific Abnormal ECG Compared to PREVIOUS TRACING , some slowing of heart rate. PREVIOUS TRACIN05/23/2017 21.59 DOCTOR: Brian Carey Interpretating Date/Time 10/01/2017 15:55:54
--- NOTE | 2017-10-01 15:59 | EKG ---
Date Performed: 10/01/2017 Time Performed: 06:06:08 PTAGE: 66 years EKG: Sinus bradycardia with sinus arrhythmia Prolonged QT interval Possible anterior infarct - a ge undetermined Low QRS voltages in precordial leads Abnormal ECG Since PREVIOUS TRACING , no significant change noted PREVIOUS TRACIN09/30/2017 20.24 DOCTOR: Brian Carey Interpretating Date/Time 10/01/2017 15:56:47
--- NOTE | 2017-10-01 15:59 | EKG ---
Date Performed: 09/30/2017 Time Performed: 20:24:21 PTAGE: 66 years EKG: SINUS BRADYCARDIA SEPTAL MYOCARDIAL INFARCTION , PROBABLY OLD ABNORMAL ECG Compared to PREVIOUS TRACING , current EKG shows sinus bradycardia while previous shows atrial fibril lation. PREVIOUS TRACIN09/30/2017 12.29 DOCTOR: Brian Carey Interpretating Date/Time 10/01/2017 15:56:38
== END 2017-10-01 12:03 | disposition home or self-care (01) ==
LOC: HDIC 11:28 → HDOC 11:28 → HCIS 20:42 → HDOC 10-01 12:03
PROVIDERS: ATTEND Internal Medicine Interventional Cardiology
DX: I48.91 Unspecified atrial fibrillation (principal); I48.92 Unspecified atrial flutter; I50.20 Unspecified systolic (congestive) heart failure; I42.9 Cardiomyopathy, unspecified; R00.2 Palpitations; Z79.01 Long term (current) use of anticoagulants
CPT/HCPCS: 00537; 80048; 85002; 85025; 85610; 85730; 86850; 86900; 86901; 93005; 93312; 93320; 93325; 93613; 93623; 93653; 93662; C1730; C1732; C1760; C2630; G0269; J1644; J1956; J2250; J2720; J3010; J7040